=== PATIENT | female | born 1960 | race American Indian/Alaskan Native ===

== ENCOUNTER 2017-04-07 18:30 | Emergency (ER) | payer MEDICARE ==
[2017-04-07 20:10] LABS: Basophils # (Auto) 0.1 K/mm3 (0.0-0.1); Basophils % (Auto) 0.7 % (0.0-1.8); Eosinophils # (Auto) 0.2 K/mm3 (0.0-0.4); Hematocrit 38.8 % (30.3-42.9); Hemoglobin 12.7 gm/dl (10.1-14.3); Lymphocytes # (Auto) 2.4 K/mm3 (1.2-5.4); Lymphocytes % (Auto) 32.2 % (13.4-35.0); Mean Corpuscular HGB Conc 33 % (30-34); Mean Corpuscular Hemoglobin 29 pg (28-32); Mean Corpuscular Volume 87 fl (79-97); Monocytes # (Auto) 0.4 K/mm3 (0.0-0.8); Monocytes % (Auto) 5.4 % (0.0-7.3); Platelet Count 216 K/mm3 (140-440); Red Blood Count 4.45 M/mm3 (3.65-5.03); Red Cell Distribution Width 14.8 % (13.2-15.2)
[2017-04-07 20:33] LABS: BUN/Creatinine Ratio 13; Blood Urea Nitrogen 12 mg/dL (7-17); Calcium 9.5 mg/dL (8.4-10.2); Hemolysis Index 20
[2017-04-08 02:24] VITALS: BP 197/77
== END 2017-04-08 10:00 | disposition left against medical advice (07) ==
LOC: ED 18:30
DX: I10 Essential (primary) hypertension (principal); Z53.21 Procedure and treatment not carried out due to patient leaving prior to being seen by health care provider
CPT/HCPCS: 36415; 80048; 84484; 85025; 93005; 93010

== ENCOUNTER 2017-05-17 00:32 | Emergency (ER) | payer MEDICARE ==
[2017-05-17 00:53] VITALS: BP 168/86
[2017-05-17 01:29] LABS: Basophils # (Auto) 0.1 K/mm3 (0.0-0.1); Basophils % (Auto) 0.6 % (0.0-1.8); Eosinophils # (Auto) 0.1 K/mm3 (0.0-0.4); Eosinophils % (Auto) 1.6 % (0.0-4.3); Hematocrit 37.8 % (30.3-42.9); Hemoglobin 12.7 gm/dl (10.1-14.3); Lymphocytes # (Auto) 2.2 K/mm3 (1.2-5.4); Lymphocytes % (Auto) 27.7 % (13.4-35.0); Mean Corpuscular HGB Conc 33 % (30-34); Mean Corpuscular Hemoglobin 28 pg (28-32); Mean Corpuscular Volume 85 fl (79-97); Monocytes # (Auto) 0.4 K/mm3 (0.0-0.8); Monocytes % (Auto) 5.4 % (0.0-7.3); Platelet Count 226 K/mm3 (140-440); Red Blood Count 4.46 M/mm3 (3.65-5.03); Red Cell Distribution Width 14.1 % (13.2-15.2)
[2017-05-17 01:51] LABS: BUN/Creatinine Ratio 15; Blood Urea Nitrogen 15 mg/dL (7-17); Hemolysis Index 31
== END 2017-05-17 09:04 | disposition left against medical advice (07) ==
LOC: ED 00:32
DX: R42 Dizziness and giddiness (principal); Z53.21 Procedure and treatment not carried out due to patient leaving prior to being seen by health care provider
CPT/HCPCS: 36415; 80048; 82962; 85025; 93005; 93010

== ENCOUNTER 2017-05-28 00:26 | Emergency (ER) | payer MEDICARE ==
[2017-05-28 01:37] LABS: Basophils # (Auto) 0.1 K/mm3 (0.0-0.1); Basophils % (Auto) 0.9 % (0.0-1.8); Eosinophils # (Auto) 0.1 K/mm3 (0.0-0.4); Eosinophils % (Auto) 1.4 % (0.0-4.3); Hematocrit 37.1 % (30.3-42.9); Hemoglobin 12.1 gm/dl (10.1-14.3); Lymphocytes # (Auto) 2.4 K/mm3 (1.2-5.4); Lymphocytes % (Auto) 25.2 % (13.4-35.0); Mean Corpuscular HGB Conc 33 % (30-34); Mean Corpuscular Hemoglobin 28 pg (28-32); Mean Corpuscular Volume 87 fl (79-97); Monocytes # (Auto) 0.6 K/mm3 (0.0-0.8); Monocytes % (Auto) 6.7 % (0.0-7.3); Platelet Count 327 K/mm3 (140-440); Red Blood Count 4.29 M/mm3 (3.65-5.03); Red Cell Distribution Width 13.9 % (13.2-15.2)
[2017-05-28 01:48] LABS: INR 0.95 (0.87-1.13)
[2017-05-28 01:49] LABS: Partial Thromboplastin Time 33.1 Sec. (24.2-36.6); Thrombin Time 14.6 Sec. (15.1-19.6)
--- NOTE | 2017-05-28 02:05 | Cat Scan Report ---
FINAL REPORT EXAM: CT HEAD/BRAIN WO CON HISTORY: FACIAL TWITCHING EARLIER, DIFFUCILTY WALKING, CVA THIS MONTH TECHNIQUE: Routine axial imaging was obtained of the brain without IV contrast. Comparison is made to the study of 06/30/2010. FINDINGS: There is no evidence of acute stroke or hemorrhage. The ventricular system is appropriate in size and is symmetric. The basal cisterns appear normal. The visualized sinuses are clear. The mastoid air cells are well pneumatized. The calvarium appears intact. IMPRESSION: No acute intracranial process.
[2017-05-28 02:14] LABS: BUN/Creatinine Ratio 15; Blood Urea Nitrogen 18 mg/dL (7-17); Calcium 9.6 mg/dL (8.4-10.2); Hemolysis Index 5
[2017-05-28] MEDS ORDERED: TYLENOL PO ONE (05:43)
[2017-05-28 05:44] VITALS: BP 131/82
--- NOTE | 2017-05-28 05:51 | Emergency Department Report ---
HPI - General Chief Complaint: Neuro Symptoms/Deficit Time Seen by Provider: 05/28/17 04:30 - HPI HPI: 56-year-old female presents to the emergency department with 2 complaints. First, patient developed some palpitations in which she felt like her heart was fluttering. She denies any chest pain, shortness of breath. Secondly, the patient complains of some bilateral facial twitching. The patient just got out of [facility] 2 days ago after being there for a stroke. She says that she went into [facility] with slurred speech, left- sided facial droop and some weakness. She was discharged home on multiple medications including Plavix and follow-up with multiple different physicians. She has a past medical history is well above insulin-dependent diabetes, GERD, coronary artery disease with [place], hypertension, hyperlipidemia, degenerative disc disease. She has a primary care physician to [facility]. She denies having a public speaking professor. She denies tobacco or illicit drug use or abuse. The patient says that earlier today, when the face began twitching around 7 PM , that she felt like she had some worsening of her walking. She denies any vision change, headache, facial droop, numbness. She did not take anything for her symptoms prior to presentation. ED Past Medical Hx - Past Medical History Previous Medical History?: Yes Hx Hypertension: Yes Hx CVA: Yes (05/2017) Hx Heart Attack/AMI: Yes (08/2016) Hx Diabetes: Yes Hx GERD: Yes Hx Renal Disease: Yes Hx Arthritis: Yes Hx COPD: No Additional medical history: High cholesterol, degenarative disc disease, anxiety , HEART MURMUR - Surgical History Past Surgical History?: Yes Additional Surgical History: right rotator cuff, cardiac cath - Social History Smoking Status: Never Smoker Substance Use Type: None - Medications Home Medications: Home Medications Medication Instructions Recorded Confirmed Last Taken Type Cyclobenzaprine [Flexeril 10 MG 10 mg PO TID PRN #14 tablet 12/04/13 Unknown Rx TAB] HYDROcodone/APAP 5-325 [[place] 1 each PO Q6HR PRN #14 tablet 12/04/13 Unknown Rx 5-325 mg TAB] Clindamycin [Clindamycin CAP] 300 mg PO Q6H #20 capsule 10/19/14 Unknown Rx Acetaminophen/Codeine [Tylenol 1 tab PO Q6H PRN #20 tab 11/23/14 Unknown Rx /Codeine # 3 tab] Clindamycin [Clindamycin CAP] 300 mg PO Q6H #28 capsule 11/23/14 Unknown Rx Acetaminophen/Codeine [Tylenol #3] 1 tab PO Q6H PRN #15 tab 07/05/15 Unknown Rx Acetaminophen/Codeine [Tylenol 1 tab PO Q6H PRN #10 tab 08/17/16 Unknown Rx /Codeine # 3 tab] Acetaminophen/Codeine [Tylenol 1 tab PO Q6H PRN #20 tab 08/17/16 Unknown Rx /Codeine # 3 tab] Cyclobenzaprine HCl [Flexeril 5 MG 5 mg PO Q8HR PRN #15 tablet 08/17/16 Unknown Rx TAB] Fluticasone [Flonase] 1 spray NS QDAY #1 bottle 08/17/16 Unknown Rx Hydrochlorothiazide [HCTZ] 25 mg PO QDAY #30 tablet 08/17/16 Unknown Rx Lisinopril [Zestril TAB] 1 tab PO BID #60 tablet 08/17/16 Unknown Rx Metformin HCl [Glucophage] 1,000 mg PO BID #60 tablet 08/17/16 Unknown Rx Ranitidine HCl [Heartburn Relief] 150 mg PO DAILY #30 tablet 08/17/16 Unknown Rx Simvastatin [Zocor TAB] 20 mg PO QHS #30 tablet 08/17/16 Unknown Rx amLODIPine [Norvasc] 1 tab PO QDAY #30 tablet 08/17/16 Unknown Rx diphenhydrAMINE [Benadryl CAP] 25 mg PO Q6HR PRN #30 capsule 08/17/16 Unknown Rx levETIRAcetam [Keppra] 500 mg PO BID #60 tablet 05/28/17 Unknown Rx ED Review of Systems ROS: Stated complaint: PALPITATIONS Other details as noted in HPI Comment: All other systems reviewed and negative Constitutional: denies: chills, fever Eyes: denies: eye pain, eye discharge, vision change ENT: denies: ear pain, throat pain Respiratory: denies: cough, shortness of breath, wheezing Cardiovascular: palpitations. denies: chest pain Gastrointestinal: denies: abdominal pain, nausea, diarrhea Genitourinary: denies: urgency, dysuria, discharge Musculoskeletal: denies: joint swelling, arthralgia Skin: denies: rash, lesions Neurological: denies: headache, numbness, confusion Physical Exam - Physical Exam Vital Signs: Vital Signs 05/28/17 05/28/17 00:51 05:41 Temperature 98.1 F Pulse Rate 83 81 Respiratory 16 16 Rate Blood Pressure 141/75 Blood Pressure 131/82 [Left] O2 Sat by Pulse 100 98 Oximetry Physical Exam: GENERAL: The patient is well-developed well-nourished. HENT: Normocephalic. Atraumatic. Patient has moist mucous membranes. EYES: Extraocular motions are intact. Pupils equal reactive to light bilaterally. No nystagmus. NECK: Supple. Trachea is midline. CHEST/LUNGS: Clear to auscultation. There is no respiratory distress noted. HEART/CARDIOVASCULAR: Regular. There is no tachycardia. There is no murmur. ABDOMEN: Abdomen is soft, nontender. Patient has normal bowel sounds. There is no abdominal distention. SKIN: Skin is warm and dry. NEURO: The patient is awake, alert, and oriented. The patient is cooperative. The patient has no focal neurologic deficits. The patient has normal speech. Cranial nerves II through XII grossly intact. No pronator drift. No dysmetria. No facial asymmetry. MUSCULOSKELETAL: There is no tenderness or deformity. There is no limitation range of motion. There is no evidence of acute injury. Muscle strength 5 out of 5 upper and lower extremities bilaterally. ED Course Vital Signs 05/28/17 05/28/17 00:51 05:41 Temperature 98.1 F Pulse Rate 83 81 Respiratory 16 16 Rate Blood Pressure 141/75 Blood Pressure 131/82 [Left] O2 Sat by Pulse 100 98 Oximetry - Reevaluation(s) Reevaluation #1: 05/28/17 06:20 NIH Stroke Scale/Score (NIHSS) from [email or web address] on 05/28/2017 All calculations should be rechecked by clinician prior to use RESULT SUMMARY: 0 points NIH Stroke Scale INPUTS: 1A: Level of consciousness > 0 = Alert; keenly responsive 1B: Ask month and age > 0 = Both questions right 1C: 'Blink eyes' & 'squeeze hands' > 0 = Performs both tasks 2: Horizontal extraocular movements > 0 = Normal 3: Visual hui > 0 = No visual loss 4: Facial palsy > 0 = Normal symmetry 5A: Left arm motor drift > 0 = No drift for 10 seconds 5B: Right arm motor drift > 0 = No drift for 10 seconds 6A: Left leg motor drift > 0 = No drift for 5 seconds 6B: Right leg motor drift > 0 = No drift for 5 seconds 7: Limb Ataxia > 0 = No ataxia 8: Sensation > 0 = Normal; no sensory loss 9: Language/aphasia > 0 = Normal; no aphasia 10: Dysarthria > 0 = Normal 11: Extinction/inattention > 0 = No abnormality - Consultations Consultation #1: 05/28/17 06:18 I spoke with the telemedicine neurologist, Dr Lopez, regarding the patient's presentation with the bilateral facial twitching and her recent visit to a local [place] facility for a CVA. She agrees that the patient does not appear to require admission at this time as she just had a significant CVA workup. However, Dr Lopez suggests that the patient get started on Keppra 500 mg twice a day to evaluate the stroke as cortical versus subcortical and as a cause of the facial twitching and that the patient should follow-up with a neurologist for assessment of whether or not the patient stay on this medication. ED Medical Decision Making - Lab Data Result diagrams: 05/28/17 01:26 05/28/17 01:26 - EKG Data -: EKG Interpreted by Me EKG shows normal: sinus rhythm, axis (left axis deviation), intervals, QRS complexes (LVH, Q waves to the septal leads), ST-T waves (there is some ST elevation to the septal leads) Rate: normal - EKG Data When compared to previous EKG there are: no significant change Interpretation: unchanged when compared t (05/17/17) - Radiology Data Radiology results: report reviewed, image reviewed interpreted by me: Chest x-ray does not show any acute process. There are no pleural effusions, obvious pneumonia and there is no pneumothorax. EXAM: CT HEAD/BRAIN WO CON HISTORY: FACIAL TWITCHING EARLIER, DIFFUCILTY WALKING, CVA THIS MONTH TECHNIQUE: Routine axial imaging was obtained of the brain without IV contrast. Comparison is made to the study of 06/30/2010. FINDINGS: There is no evidence of acute stroke or hemorrhage. The ventricular system is appropriate in size and is symmetric. The basal cisterns appear normal. The visualized sinuses are clear. The mastoid air cells are well pneumatized. The calvarium appears intact. IMPRESSION: No acute intracranial process. Transcribed By: RB Dictated By: WESLEY GARCIAS MD Electronically Authenticated By: WESLEY GARCIAS MD Signed Date/Time: 05/28/17 0200 - Medical Decision Making The patient came in originally for the complaints of palpitations and some facial twitching. Her symptoms appear to have resolved by the time she has back in the main emergency department. However she had mentioned through triage that the facial twitching brought on some concern for transient slurred speech and/or some weakness. The patient had a CT scan of the head that did not show any bleed, shift, mass or any acute process. EKG did not show any ST elevation [place], or any significant dysrhythmia. Her labs have been unremarkable including no signs of any leukocytosis, electrolyte abnormalities, renal insufficiency, significant hyperglycemia and the patient had negative troponins 2. On physical examination, the patient is a NIH stroke scale of a 0. Chest x -ray did not show any acute process. Her vital signs have been stable throughout her ED course. The patient was just at another hospital for a full neurological workup and I believe also included an MRI. I spoke with the telemedicine neurologist who did not feel that the patient required any admission for the transient symptoms that occurred earlier but recommended starting the patient on some Keppra. The patient says that she feels like she is at her baseline from when she left the last hospital. She was seen ambulatory in the emergency department, using her cane, but otherwise appeared stable. The patient will be discharged home with a referral for both cardiology and neurology. She has been encouraged to return to the emergency department immediately with any return of any strokelike symptoms, development of any chest pain, return of her palpitations, with any shortness of breath, orthopnea acute distress. She understands and agrees to the plan. - Differential Diagnosis TIA, Dysrythmia, Hyperglycemia, Electrolyte abnormalities Critical Care Time: No Critical care attestation.: If time is entered above; I have spent that time in minutes in the direct care of this critically ill patient, excluding procedure time. ED Disposition Clinical Impression: Palpitations, Facial twitching Disposition: DC-01 TO HOME OR SELFCARE Is pt being admited?: No Condition: Stable Instructions: Palpitations (ED), Muscle Spasm (ED) Additional Instructions: Please follow-up with your primary care physician in the next few days. I have given him a referral for a local public speaking professor, Dr. Ny, to follow up regarding your palpitations. I have given her a referral for a local neurologist, Dr. Doherty, to follow up regarding your previous stroke. Return to the emergency department with any worsening of your symptoms or with any acute distress. Prescriptions: levETIRAcetam [Keppra] 500 mg PO BID #60 tablet Referrals: MANDEEP DOHERTY MD [Staff Physician] - 3-5 Days CHRISSY NY MD [Staff Physician] - 3-5 Days Time of Disposition: 06:16
--- NOTE | 2017-05-28 06:00 | XRay Report ---
FINAL REPORT EXAM: XR CHEST 1V AP HISTORY: palpitations TECHNIQUE: A portable upright view of the chest was submitted. FINDINGS: The heart size and mediastinum appear normal. The lungs are clear. Pleural fluid is not seen. The bones and soft tissues do not show any acute changes. IMPRESSION: No active chest disease.
== END 2017-05-28 06:30 | disposition home or self-care (01) ==
LOC: ED 00:26
DX: R25.3 Fasciculation (principal); R00.2 Palpitations; I10 Essential (primary) hypertension; E11.9 Type 2 diabetes mellitus without complications; K21.9 Gastro-esophageal reflux disease without esophagitis; M19.90 Unspecified osteoarthritis, unspecified site; E78.00 Pure hypercholesterolemia, unspecified; F41.9 Anxiety disorder, unspecified; I63.9 Cerebral infarction, unspecified; I21.9 Acute myocardial infarction, unspecified; Z88.6 Allergy status to analgesic agent
CPT/HCPCS: 36415; 70450; 71045; 80048; 82962; 83735; 84484; 85025; 85610; 85670; 85730; 93005; 93010; 99284

== ENCOUNTER 2017-06-02 17:55 | Emergency (ER) | payer MEDICARE ==
[2017-06-02 19:19] VITALS: BP 129/67
[2017-06-02 19:39] LABS: Basophils # (Auto) 0.1 K/mm3 (0.0-0.1); Basophils % (Auto) 0.9 % (0.0-1.8); Eosinophils # (Auto) 0.1 K/mm3 (0.0-0.4); Eosinophils % (Auto) 1.5 % (0.0-4.3); Hemoglobin 11.7 gm/dl (10.1-14.3); Lymphocytes # (Auto) 2.3 K/mm3 (1.2-5.4); Lymphocytes % (Auto) 29.5 % (13.4-35.0); Mean Corpuscular HGB Conc 33 % (30-34); Mean Corpuscular Hemoglobin 28 pg (28-32); Mean Corpuscular Volume 87 fl (79-97); Monocytes # (Auto) 0.5 K/mm3 (0.0-0.8); Monocytes % (Auto) 6.1 % (0.0-7.3); Platelet Count 340 K/mm3 (140-440); Red Blood Count 4.16 M/mm3 (3.65-5.03); Red Cell Distribution Width 14.1 % (13.2-15.2)
[2017-06-02 19:54] LABS: Albumin 4.1 g/dL (3.9-5); Calcium 9.4 mg/dL (8.4-10.2)
== END 2017-06-02 23:21 | disposition left against medical advice (07) ==
LOC: ED 17:55
DX: K59.00 Constipation, unspecified (principal); Z53.21 Procedure and treatment not carried out due to patient leaving prior to being seen by health care provider
CPT/HCPCS: 36415; 80053; 82962; 85025

== ENCOUNTER 2017-07-18 15:18 | Observation (INO) | payer MEDICARE ==
--- NOTE | 2017-07-18 17:50 | Emergency Department Report ---
Blank Doc - Documentation Documentation: Patient is a 56-year-old female who is presenting with chest pain. Patient has a past smoker history of [place] hypertension and diabetes high cholesterol. Patient states that last night she started getting sharp chest pain that sometimes lasts from seconds to minutes, sometimes last up to 5-10 minutes. Patient states she is currently not short of breath but they've had some shortness of breath during one of 2 of these episodes. Patient states they occur at rest. Patient is concerned that she may be having a heart attack. Patient denies any fevers chills nausea vomiting or cough at this time.
[2017-07-18 18:17] LABS: Basophils # (Auto) 0.1 K/mm3 (0.0-0.1); Basophils % (Auto) 0.8 % (0.0-1.8); Eosinophils # (Auto) 0.1 K/mm3 (0.0-0.4); Eosinophils % (Auto) 1.5 % (0.0-4.3); Hematocrit 31.7 % (30.3-42.9); Hemoglobin 10.5 gm/dl (10.1-14.3); Lymphocytes % (Auto) 22.2 % (13.4-35.0); Mean Corpuscular HGB Conc 33 % (30-34); Mean Corpuscular Hemoglobin 29 pg (28-32); Mean Corpuscular Volume 86 fl (79-97); Monocytes # (Auto) 0.4 K/mm3 (0.0-0.8); Monocytes % (Auto) 4.8 % (0.0-7.3); Platelet Count 296 K/mm3 (140-440); Red Blood Count 3.67 M/mm3 (3.65-5.03); Red Cell Distribution Width 14.7 % (13.2-15.2)
[2017-07-18 18:27] LABS: INR 0.95 (0.87-1.13)
[2017-07-18 18:28] LABS: Partial Thromboplastin Time 34.1 Sec. (24.2-36.6)
[2017-07-18 18:59] LABS: BUN/Creatinine Ratio 14; Blood Urea Nitrogen 18 mg/dL (7-17); Calcium 9.8 mg/dL (8.4-10.2); Hemolysis Index 3
--- NOTE | 2017-07-18 19:53 | XRay Report ---
FINAL REPORT EXAM: XR CHEST ROUTINE 2V HISTORY: Chest Pain TECHNIQUE: Two view chest PA and lateral PRIORS: Comparison is May 28, 2017 FINDINGS: Cardiac and mediastinal contours are unremarkable. No focal pulmonary infiltrate is identified. No pleural fluid collection seen. Pulmonary vasculature is unremarkable. IMPRESSION: Negative two-view chest
[2017-07-18] MEDS ORDERED: PLAVIX PO ONE (20:57)
--- NOTE | 2017-07-18 20:59 | Emergency Department Report ---
HPI - General Chief Complaint: Chest Pain Time Seen by Provider: 07/18/17 17:43 - HPI HPI: Room 6 The patient is a 56-year-old female presenting with a chief complaint of chest pain. The patient states she's had left-sided chest pain intermittently since last night. The patient states pain radiates to her right neck. Patient denies shortness of breath, nausea/vomiting or diaphoresis. The patient states her chest pain is currently 0/10. The patient has had a cardiac catheterization in August 2016 which revealed 30-40% nonobstructive coronary artery disease Location: Chest Duration: Intermittent since last night Quality: Sharp Severity: Currently 0/10 Modifying factors: [see above] Context: [see above] Mode of transportation: [not driving] ED Past Medical Hx - Past Medical History Hx Hypertension: Yes Hx CVA: Yes (05/2017) Hx Heart Attack/AMI: Yes (08/2016) Hx Diabetes: Yes Hx GERD: Yes Hx Renal Disease: Yes Hx Arthritis: Yes Additional medical history: High cholesterol, degenarative disc disease, anxiety , HEART MURMUR - Surgical History Additional Surgical History: right rotator cuff, cardiac cath - Family History Family history: no significant - Social History Smoking Status: Never Smoker Substance Use Type: None - Medications Home Medications: Home Medications Medication Instructions Recorded Confirmed Last Taken Type Cyclobenzaprine [Flexeril 10 MG 10 mg PO TID PRN #14 tablet 12/04/13 06/02/17 Unknown Rx TAB] Acetaminophen/Codeine [Tylenol 1 tab PO Q6H PRN #20 tab 11/23/14 06/02/17 Unknown Rx /Codeine # 3 tab] Cyclobenzaprine HCl [Flexeril 5 MG 5 mg PO Q8HR PRN #15 tablet 08/17/16 Unknown Rx TAB] Fluticasone [Flonase] 1 spray NS QDAY #1 bottle 08/17/16 06/02/17 Unknown Rx Lisinopril [Zestril TAB] 1 tab PO BID #60 tablet 08/17/16 06/02/17 Unknown Rx Ranitidine HCl [Heartburn Relief] 150 mg PO DAILY #30 tablet 08/17/16 06/02/17 Unknown Rx amLODIPine [Norvasc] 1 tab PO QDAY #30 tablet 08/17/16 06/02/17 Unknown Rx AtorvaSTATin [Lipitor] 40 mg PO QHS 06/02/17 06/02/17 Unknown History Clopidogrel [Plavix] 75 mg PO QDAY 06/02/17 06/02/17 Unknown History HYDROcodone/APAP 5-325 [[place] 5 mg PO DAILY 06/02/17 06/02/17 Unknown History 5-325 mg TAB] Hydrochlorothiazide [HCTZ] 12.5 mg PO QDAY 06/02/17 06/02/17 Unknown History glipiZIDE [Glipizide] 10 mg PO DAILY 06/02/17 06/02/17 Unknown History hydrALAZINE [Apresoline] 25 mg PO Q8HR 06/02/17 06/02/17 Unknown History ED Review of Systems ROS: Stated complaint: CHEST PAIN Other details as noted in HPI Constitutional: denies: diaphoresis Respiratory: denies: shortness of breath Cardiovascular: chest pain Gastrointestinal: denies: nausea, vomiting Physical Exam - Physical Exam Vital Signs: Vital Signs 07/18/17 07/18/17 07/18/17 15:37 19:15 20:30 Temperature 98.9 F 98.2 F Pulse Rate 82 61 68 Respiratory 16 15 13 Rate Blood Pressure 147/73 116/64 Blood Pressure 119/68 [Left] O2 Sat by Pulse 97 99 98 Oximetry Physical Exam: GENERAL: The patient is well-developed well-nourished female lying on stretcher not appearing to be in acute distress HEENT: Normocephalic. Atraumatic. Extraocular motions are intact. Patient has moist mucous membranes. NECK: Supple. Trachea midline CHEST/LUNGS: Clear to auscultation. There is no respiratory distress noted. HEART/CARDIOVASCULAR: Regular. There is no tachycardia. There is no gallop rub or murmur. ABDOMEN: Abdomen is soft, nontender. Patient has normal bowel sounds. There is no abdominal distention. SKIN: There is no rash. There is no diaphoresis. NEURO: The patient is awake, alert, and oriented. The patient is cooperative. The patient has normal speech MUSCULOSKELETAL: There is no evidence of acute injury. ED Course Vital Signs 07/18/17 07/18/17 07/18/17 15:37 19:15 20:30 Temperature 98.9 F 98.2 F Pulse Rate 82 61 68 Respiratory 16 15 13 Rate Blood Pressure 147/73 116/64 Blood Pressure 119/68 [Left] O2 Sat by Pulse 97 99 98 Oximetry ED Medical Decision Making - Lab Data Result diagrams: 07/18/17 18:02 07/18/17 18:02 Laboratory Tests 07/18/17 07/18/17 07/18/17 18:02 18:02 18:02 WBC 9.1 RBC 3.67 Hgb 10.5 Hct 31.7 MCV 86 MCH 29 MCHC 33 RDW 14.7 Plt Count 296 Lymph % (Auto) 22.2 [place] % (Auto) 4.8 Eos % (Auto) 1.5 Baso % (Auto) 0.8 Lymph # 2.0 [place] # 0.4 Eos # 0.1 Baso # 0.1 Seg Neutrophils % 70.7 H Seg Neutrophils # 6.4 PT 13.1 INR 0.95 APTT 34.1 Sodium 137 Potassium 4.7 Chloride 97.7 L Carbon Dioxide 25 Anion Gap 19 BUN 18 H Creatinine 1.3 H Estimated GFR 51 BUN/Creatinine Ratio 14 Glucose 127 H POC Glucose Calcium 9.8 Troponin T < 0.010 07/18/17 07/18/17 20:31 20:50 WBC RBC Hgb Hct MCV MCH MCHC RDW Plt Count Lymph % (Auto) [place] % (Auto) Eos % (Auto) Baso % (Auto) Lymph # [place] # Eos # Baso # Seg Neutrophils % Seg Neutrophils # PT INR APTT Sodium Potassium Chloride Carbon Dioxide Anion Gap BUN Creatinine Estimated GFR BUN/Creatinine Ratio Glucose POC Glucose 140 H Calcium Troponin T < 0.010 - EKG Data -: EKG Interpreted by Me EKG shows normal: sinus rhythm Rate: normal - EKG Data When compared to previous EKG there are: no significant change Interpretation: LVH - Radiology Data Radiology results: report reviewed (chest x-ray), image reviewed (chest x-ray) interpreted by me: Chest x-ray- no focal infiltrates, no pneumothorax - Differential Diagnosis ACS, GERD, pericarditis, angina Critical care attestation.: If time is entered above; I have spent that time in minutes in the direct care of this critically ill patient, excluding procedure time. ED Disposition Clinical Impression: Chest pain Disposition: DC-09 OP ADMIT IP TO THIS HOSP Is pt being admited?: Yes Does the pt Need Aspirin: No (allergic to NSAIDs. Will give Plavix) Condition: Fair Instructions: Chest Pain (ED) Referrals: PRIMARY CARE, [Primary Care Provider] - 3-5 Days Time of Disposition: 22:07 (hospitalist notified (Dr Dorman))
--- NOTE | 2017-07-18 23:40 | History and Physical Report ---
History of Present Illness Date of examination: 07/18/17 Date of admission: 07/18/17 22:08 Chief complaint: Chief complaint: Left-sided chest pain since last night-intermittent in nature History of present illness: NEIL: 56-year-old -Australian female with history of coronary artery disease hypertension and type 2 diabetes and hyperlipidemia comes in for left-sided chest pain since last night. Chest pain is intermittent in nature. Pain is about 5 on a scale of 1-10. Patient had cardiac cath last year in 2016 and had a 30-40% lesion and coronary artery disease. Did not require any stenting. Follows with [facility]. No diaphoresis no shortness of breath. No palpitations. Pain occasionally radiates to her right side of the neck. No recent travel. No fever no chills. Past Medical History Hx Hypertension: Yes Hx CVA: Yes (05/2017) Hx Heart Attack/AMI: Yes (08/2016) Hx Diabetes: Yes Hx GERD: Yes Hx Renal Disease: Yes Hx Arthritis: Yes Additional medical history: High cholesterol, degenarative disc disease, anxiety , HEART MURMUR Surgical History Additional Surgical History: right rotator cuff, cardiac cath Family History Family history: no significant Social History Smoking Status: Never Smoker Substance Use Type: None Medications Home Medications: Home Medications Medication Instructions Recorded Confirmed Last Taken Type Cyclobenzaprine [Flexeril 10 MG 10 mg PO TID PRN #14 tablet 12/04/13 06/02/17 Unknown Rx TAB] Acetaminophen/Codeine [Tylenol 1 tab PO Q6H PRN #20 tab 11/23/14 06/02/17 Unknown Rx /Codeine # 3 tab] Cyclobenzaprine HCl [Flexeril 5 MG 5 mg PO Q8HR PRN #15 tablet 08/17/16 Unknown Rx TAB] Fluticasone [Flonase] 1 spray NS QDAY #1 bottle 08/17/16 06/02/17 Unknown Rx Lisinopril [Zestril TAB] 1 tab PO BID #60 tablet 08/17/16 06/02/17 Unknown Rx Ranitidine HCl [Heartburn Relief] 150 mg PO DAILY #30 tablet 08/17/16 06/02/17 Unknown Rx amLODIPine [Norvasc] 1 tab PO QDAY #30 tablet 08/17/16 06/02/17 Unknown Rx AtorvaSTATin [Lipitor] 40 mg PO QHS 06/02/17 06/02/17 Unknown History Clopidogrel [Plavix] 75 mg PO QDAY 06/02/17 06/02/17 Unknown History HYDROcodone/APAP 5-325 [[place] 5 mg PO DAILY 06/02/17 06/02/17 Unknown History 5-325 mg TAB] Hydrochlorothiazide [HCTZ] 12.5 mg PO QDAY 06/02/17 06/02/17 Unknown History glipiZIDE [Glipizide] 10 mg PO DAILY 06/02/17 06/02/17 Unknown History hydrALAZINE [Apresoline] 25 mg PO Q8HR 06/02/17 06/02/17 Unknown History Medications and Allergies Allergies Allergy/AdvReac Type Severity Reaction Status Date / Time aspirin Allergy Unknown Verified 06/14/15 14:10 NSAIDS (Non-Steroidal Allergy Vomiting Verified 06/14/15 14:10 Anti-Inflamma shellfish derived Allergy Swelling Verified 06/14/15 14:10 Penicillins AdvReac Swelling Verified 06/14/15 14:10 Home Medications Medication Instructions Recorded Confirmed Last Taken Type Acetaminophen/Codeine [Tylenol 1 tab PO Q6H PRN #20 tab 11/23/14 07/18/17 Unknown Rx /Codeine # 3 tab] Fluticasone [Flonase] 1 spray NS QDAY #1 bottle 08/17/16 07/18/17 Unknown Rx Lisinopril [Zestril TAB] 1 tab PO BID #60 tablet 08/17/16 07/18/17 Unknown Rx Ranitidine HCl [Heartburn Relief] 150 mg PO DAILY #30 tablet 08/17/16 07/18/17 Unknown Rx amLODIPine [Norvasc] 1 tab PO QDAY #30 tablet 08/17/16 07/18/17 Unknown Rx AtorvaSTATin [Lipitor] 40 mg PO QHS 06/02/17 07/18/17 Unknown History Clopidogrel [Plavix] 75 mg PO QDAY 06/02/17 07/18/17 Unknown History HYDROcodone/APAP 5-325 [[place] 5 mg PO DAILY 06/02/17 07/18/17 Unknown History 5-325 mg TAB] Hydrochlorothiazide [HCTZ] 12.5 mg PO QDAY 06/02/17 07/18/17 Unknown History glipiZIDE [Glipizide] 10 mg PO DAILY 06/02/17 07/18/17 Unknown History hydrALAZINE [Apresoline] 25 mg PO Q8HR 06/02/17 07/18/17 Unknown History Aspirin [Aspir-Low] 81 mg PO DAILY 07/18/17 07/18/17 Unknown History Review of Systems All systems: negative Constitutional: no weight loss, no weight gain, no fever, no chills, no sweats, no night sweats Ears, nose, mouth and throat: no mouth pain, no dysphagia, no hoarseness, no sore throat, no swelling in mouth, no swelling in throat Breasts: deferred Cardiovascular: chest pain, no orthopnea, no palpitations, no rapid/irregular heart beat, no edema, no syncope, no lightheadedness, no shortness of breath, no dyspnea on exertion, no paroxysmal nocturnal dyspnea, no claudication, no phlebitis, no high blood pressure, no leg edema, no decreased exercise tolerance , no other Respiratory: no cough, no cough with sputum, no excessive sputum, no hemoptysis , no shortness of breath, no dyspnea on exertion Gastrointestinal: no abdominal pain, no nausea, no vomiting, no diarrhea, no constipation, no change in bowel habits, no hematemesis, no coffee ground emesis Genitourinary Female: no pelvic pain, no flank pain, no menorrhagia, no dysuria , no urinary frequency, no urgency, no stress incontinence, no post void dribbling, no incomplete emptying, no urge incontinence Menstruation: ammenorrhea Rectal: no pain Musculoskeletal: no neck stiffness, no neck pain, no shooting arm pain, no arm numbness/tingling, no low back pain, no shooting leg pain, no leg numbness/ tingling, no redness of joints Integumentary: no rash, no pruritis, no redness, no sores, no wounds, no jaundice, no boils, no blisters Neurological: no seizures, no syncope Psychiatric: no anxiety, no memory loss, no change in sleep habits, no sleep disturbances, no insomnia, no hypersomnia Endocrine: no cold intolerance, no heat intolerance, no polyphagia, no excessive thirst, no polydipsia Hematologic/Lymphatic: no easy bruising, no easy bleeding Allergic/Immunologic: no urticaria, no allergic rhinitis, no wheezing Exam - Constitutional Vitals: Temp Pulse Resp BP Pulse Ox 98.2 F 65 12 125/62 100 07/18/17 19:15 07/18/17 22:00 07/18/17 22:00 07/18/17 22:00 07/18/17 22:00 General appearance: Present: no acute distress, well-nourished - EENT Eyes: Present: PERRL ENT: hearing intact, clear oral mucosa - Neck Neck: Present: supple, normal ROM - Respiratory Respiratory effort: normal Respiratory: bilateral: CTA - Cardiovascular Heart rate: 68 Rhythm: regular Heart Sounds: Present: S1 & S2. Absent: rub, click - Extremities Extremities: pulses symmetrical, No edema Peripheral Pulses: within normal limits - Abdominal General gastrointestinal: Present: soft, non-tender, non-distended, normal bowel sounds Female genitourinary: Present: normal - Rectal Rectal Exam: deferred - Integumentary Integumentary: Present: clear, warm, dry - Musculoskeletal Musculoskeletal: gait normal, strength equal bilaterally - Psychiatric Psychiatric: appropriate mood/affect, intact judgment & insight - Neurologic Neurologic: CNII-XII intact, moves all extremities - Allied Health Allied health notes reviewed: nursing, case management Results - Labs CBC & Chem 7: 07/18/17 18:02 07/18/17 18:02 Labs: Laboratory Last Values WBC 9.1 K/mm3 (4.5-11.0) 07/18/17 18: RBC 3.67 M/mm3 (3.65-5.03) 07/18/17 18: Hgb 10.5 gm/dl (10.1-14.3) 07/18/17 18: Hct 31.7 % (30.3-42.9) 07/18/17 18:02 MCV 86 fl (79-97) 07/18/17 18:02 MCH 29 pg (28-32) 07/18/17 18: MCHC 33 % (30-34) 07/18/17 18: RDW 14.7 % (13.2-15.2) 07/18/17 18: Plt Count 296 K/mm3 (140-440) 07/18/17 18: Lymph % (Auto) 22.2 % (13.4-35.0) 07/18/17 18:02 [place] % (Auto) 4.8 % (0.0-7.3) 07/18/17 18:02 Eos % (Auto) 1.5 % (0.0-4.3) 07/18/17 18:02 Baso % (Auto) 0.8 % (0.0-1.8) 07/18/17 18:02 Lymph # 2.0 K/mm3 (1.2-5.4) 07/18/17 18:02 [place] # 0.4 K/mm3 (0.0-0.8) 07/18/17 18:02 Eos # 0.1 K/mm3 (0.0-0.4) 07/18/17 18:02 Baso # 0.1 K/mm3 (0.0-0.1) 07/18/17 18:02 Seg Neutrophils % 70.7 % (40.0-70.0) H 07/18/17 18:02 Seg Neutrophils # 6.4 K/mm3 (1.8-7.7) 07/18/17 18:02 PT 13.1 Sec. (12.2-14.9) 07/18/17 18:02 INR 0.95 (0.87-1.13) 07/18/17 18:02 APTT 34.1 Sec. (24.2-36.6) 07/18/17 18:02 Sodium 137 mmol/L (137-145) 07/18/17 18:02 Potassium 4.7 mmol/L (3.6-5.0) 07/18/17 18:02 Chloride 97.7 mmol/L (98-107) L 07/18/17 18:02 Carbon Dioxide 25 mmol/L (22-30) 07/18/17 18:02 Anion Gap 19 mmol/L 07/18/17 18:02 BUN 18 mg/dL (7-17) H 07/18/17 18:02 Creatinine 1.3 mg/dL (0.7-1.2) H 07/18/17 18:02 Estimated GFR 51 ml/min 07/18/17 18:02 BUN/Creatinine Ratio 14 % 07/18/17 18:02 Glucose 127 mg/dL (65-100) H 07/18/17 18:02 POC Glucose 140 (70-105) H 07/18/17 20:31 Calcium 9.8 mg/dL (8.4-10.2) 07/18/17 18:02 Troponin T < 0.010 ng/mL (0.00-0.029) 07/18/17 20:50 Short CBC 07/18/17 Range/Units 18:02 WBC 9.1 (4.5-11.0) K/mm3 Hgb 10.5 (10.1-14.3) gm/dl Hct 31.7 (30.3-42.9) % Plt Count 296 (140-440) K/mm3 BMP 07/18/17 18:02 Sodium 137 Potassium 4.7 Chloride 97.7 L Carbon Dioxide 25 BUN 18 H Creatinine 1.3 H Glucose 127 H Calcium 9.8 Cardiac Enzymes 07/18/17 07/18/17 Range/Units 18:02 20:50 Troponin T < 0.010 < 0.010 (0.00-0.029) ng/mL - Imaging and Cardiology EKG: report reviewed (normal sinus rhythm heart rate of 68 and LVH by voltage criteria deep S waves in V1 and V2 and tall R waves in V4 V5 and V6) Assessment and Plan Advance Directives: Yes (full code) VTE prophylaxis?: Chemical Plan of care discussed with patient/family: Yes - Patient Problems (1) Acute coronary syndrome Current Visit: Yes Status: Acute Plan to address problem: Patient had a CABG in August 2016 which is apparently near normal. Patient to get stress test in the morning. Serial cardiac enzymes Cardiology consult by [facility] (2) RON (acute kidney injury) Current Visit: Yes Status: Acute Plan to address problem: IV fluids for now (3) Hypertensive emergency Current Visit: No Status: Acute Plan to address problem: Adjust blood pressure medications and IV hydralazine 10 mg every 3 when necessary for systolic more than 160 and diastolic 100 mm Hg (4) T2DM (type 2 diabetes mellitus) Current Visit: Yes Status: Chronic Qualifiers: Diabetes mellitus extermination supervisor insulin use: without halfway use Plan to address problem: Continue oral hypoglycemics and coverage Check hemoglobin A1c (5) Coronary artery disease Current Visit: Yes Status: Chronic Qualifiers: Coronary Disease-Associated Artery/Lesion type: [place] artery [place] vs. transplanted heart: [place]q heart Plan to address problem: Continue Plavix (6) Hyperlipidemia Current Visit: Yes Status: Chronic Qualifiers: Hyperlipidemia type: mixed hyperlipidemia Qualified Code(s): E78.2 - Mixed hyperlipidemia Plan to address problem: Continue statins (7) DVT prophylaxis Current Visit: Yes Status: Acute Plan to address problem: on heparin 5000 every 12
[2017-07-19] MEDS ORDERED: TYLENOL PO PRN (00:08)
[2017-07-19] MEDS ORDERED: SODIUM CHLORIDE FLUSH SYRINGE 10 ML IV PRN (00:08)
[2017-07-19] MEDS ORDERED: ZOFRAN IV PRN (00:08)
[2017-07-19] MEDS ORDERED: AMBIEN PO PRN (00:09)
[2017-07-19] MEDS ORDERED: MORPHINE IV PRN (00:09)
[2017-07-19] MEDS ORDERED: D50W (25GM) Syringe IV PRN (00:09)
[2017-07-19] MEDS ORDERED: PERCOCET 5/325 PO PRN (00:09)
[2017-07-19] MEDS ORDERED: TYLENOL #3 PO PRN (00:12)
[2017-07-19] MEDS ORDERED: NACL 0.9% 1000 ML 1,000 ML IV SCH (01:00)
[2017-07-19 01:13] LABS: Albumin 3.9 g/dL (3.9-5); Calcium 9.3 mg/dL (8.4-10.2)
[2017-07-19] MEDS: APRESOLINE PO SCH ×2 (01:20→06:33)
[2017-07-19] MEDS: ZESTRIL PO SCH ×2 (01:20→10:42)
[2017-07-19] MEDS ORDERED: GLUCOTROL PO SCH (08:00)
[2017-07-19] MEDS ORDERED: LEXISCAN IV ONE (08:09)
[2017-07-19] MEDS: HumaLOG SUB-Q SCH ×2 (08:36→13:06)
[2017-07-19] MEDS ORDERED: NORCO 5/325 PO SCH (10:00)
[2017-07-19] MEDS ORDERED: FLONASE NS SCH (10:00)
[2017-07-19] MEDS ORDERED: NORVASC PO SCH (10:00)
[2017-07-19] MEDS ORDERED: HALFPRIN EC PO SCH (10:00)
[2017-07-19] MEDS ORDERED: SODIUM CHLORIDE FLUSH SYRINGE 10 ML IV SCH (10:00)
[2017-07-19] MEDS ORDERED: PLAVIX PO SCH (10:00)
[2017-07-19] MEDS ORDERED: PEPCID PO SCH (10:00)
--- NOTE | 2017-07-19 10:49 | Event Note ---
Date: 07/19/17 Full c/s dictated. D/w Dr. Sewell
[2017-07-19 12:14] VITALS: BP 124/60
--- NOTE | 2017-07-19 13:27 | Discharge Summary ---
Providers - Providers Date of Admission: 07/18/17 22:08 Date of discharge: 07/19/17 Attending physician: DONG JONES 07/19/17 00:09 Consult to Physician [CONS] Routine Comment: Consulting Provider: CLIFF BLANCAS Physician Instructions: Reason For Exam: ACS Primary care physician: SAMPLE HAND Hospitalization Condition: Fair Hospital course: Discharge diagnosis: /Atypical chest pain likely from GERD Patient had a CABG in August 2016 which is apparently near normal. Patient had stress test in the morning and that was normal /CKD, at baseline Cr was 1.4 on 06/2017 /Hypertensive emergency Adjusted blood pressure medications and IV hydralazine 10 mg every 3 when necessary given for systolic more than 160 and diastolic 100 mm Hg / T2DM (type 2 diabetes mellitus) Placed on oral hypoglycemics and coverage A1c 8.0 / Coronary artery disease Continue Plavix /Hyperlipidemia Continue statins /DVT prophylaxis on heparin 5000 every 12 Disposition: IA-01 TO HOME OR SELFCARE Time spent for discharge: 34 minutes Core Measure Documentation - Palliative Care Palliative Care/ Comfort Measures: Not Applicable - Core Measures Any of the following diagnoses?: none Exam - Constitutional Vitals: Temp Pulse Resp BP Pulse Ox 97.9 F 91 H 18 124/60 96 07/19/17 11:40 07/19/17 09:21 07/19/17 11:40 07/19/17 11:40 07/19/17 03:18 Plan Activity: advance as tolerated Weight Bearing Status: Weight Bear as Tolerated Diet: low fat, low salt Follow up with: [facility] [Provider Group] - 7 Days PRIMARY CARE, [Primary Care Provider] - 3-5 Days
--- NOTE | 2017-07-20 03:09 | Treadmill Report ---
NUCLEAR PERFUSION SCAN REFERRING PHYSICIAN: Hospitalist service. PROTOCOL: The patient was brought to the stress lab in a postoperative state, given 10 mCi of technetium 99m at rest. The patient underwent rest imaging. The patient underwent Lexiscan stress test per standard protocol. At peak stress, the patient was given 26 mCi of technetium 99m. Shortly thereafter, the patient underwent stress imaging. Raw imaging reveals mild GI artifact. No significant motion artifact. SPECT imaging examined carefully in horizontal long axis, vertical long axis and short axis views. There was normal homogenous uptake of radioisotope in all reported segments. No evidence of any significant fixed or reversible perfusion defects suggestive of prior infarction or ischemia. Gated wall motion is normal systolic thickening, calculated ejection fraction of 69%. No TID. CONCLUSIONS: 1. Normal myocardial perfusion scan without evidence of active ischemia or prior infarction. 2. Normal left ventricular systolic performance without evidence of transient ischemic dilatation or stress-induced segmental wall motion abnormalities. 3. Normal Lexiscan stress test without evidence of diagnostic ST changes, arrhythmias or chest pain during stress or recovery. JOB# [id number] LA NENA/SERAFIN
--- NOTE | 2017-07-20 03:23 | Consultation ---
CARDIOLOGY CONSULTATION REFERRING PHYSICIAN: ____. HISTORY OF PRESENT ILLNESS: The patient is a very pleasant 56-year-old female with a history of mild nonobstructive coronary artery disease, type 2 diabetes and hyperlipidemia, presents with left-sided chest pain. Describes as intermittent, sharp, nonexertional, no associated shortness of breath or palpitations. Questionable history of CVA in 05/2017. She does have a history of hypertension and diabetes. Also, degenerative disk disease and anxiety. Surgeries were reviewed. ALLERGIES: ALLERGIC TO ASPIRIN, NSAID, SHELLFISH AND PENICILLIN. HOME MEDICATIONS: Reviewed. Inpatient medications are reviewed. REVIEW OF SYSTEMS: As per HPI. PHYSICAL EXAMINATION: VITAL SIGNS: Blood pressure 140/60. She is afebrile. Tele reveals sinus rhythm. O2 sats 90% on room air. GENERAL: This is a middle-aged female in no apparent distress, alert and oriented x 3. HEENT: Sclerae icteric. NECK: Supple, no masses, no JVD. CHEST: Clear to auscultation bilaterally. Good air movement. CARDIOVASCULAR: Regular rate and rhythm. ABDOMEN: Soft and nontender. EXTREMITIES: No cyanosis, clubbing or edema. Good peripheral pulses. SKIN: Intact. No rashes. LABORATORY DATA: Cardiac enzymes are negative x 3. Creatinine is 1.3, BUN 18 and glucose 124. IMAGING DATA: At this point, ECG reveals normal sinus rhythm, heart rate of 68. LVH with S waves in V1 and V2. ASSESSMENT AND PLAN: In summary, the patient is a pleasant 56-year-old female: 1. Chest pain with typical and atypical features, now resolved. Cardiac enzymes negative x3. EKG nuclear stress test performed this morning is normal. No evidence of ischemia or prior infarction. She has been compliant with her medications. Other medical history as aforementioned. She is clinically stable. Results discussed with Dr. Rice, hospitalist service. JOB# [id number] SBM/NTS
== END 2017-07-19 16:32 | disposition home or self-care (01) ==
LOC: ED 15:18 → INTOOBSV 22:08 → 4A 22:08
PROVIDERS: ADMIT Internal Medicine; ATTEND Internal Medicine
DX: I24.9 Acute ischemic heart disease, unspecified (principal); N17.9 Acute kidney failure, unspecified; I16.1 Hypertensive emergency; K21.9 Gastro-esophageal reflux disease without esophagitis; E11.22 Type 2 diabetes mellitus with diabetic chronic kidney disease; I25.10 Atherosclerotic heart disease of native coronary artery without angina pectoris; E78.5 Hyperlipidemia, unspecified; I12.9 Hypertensive chronic kidney disease with stage 1 through stage 4 chronic kidney disease, or unspecified chronic kidney disease; N18.9 Chronic kidney disease, unspecified; M19.90 Unspecified osteoarthritis, unspecified site; F41.9 Anxiety disorder, unspecified; Z95.1 Presence of aortocoronary bypass graft; I25.2 Old myocardial infarction; Z86.73 Personal history of transient ischemic attack (TIA), and cerebral infarction without residual deficits; Z79.899 Other long term (current) drug therapy; Z88.6 Allergy status to analgesic agent; Z88.0 Allergy status to penicillin; Z91.013 Allergy to seafood; Z79.82 Long term (current) use of aspirin
CPT/HCPCS: 36415; 71046; 78452; 80048; 80053; 82962; 83036; 84484; 85025; 85610; 85730; 93005; 93010; 93017; 96360; 96361; 96372; 99285; A9502; G0378; J2785; J7030; 96374

== ENCOUNTER 2018-09-05 02:41 | Emergency (ER) | payer MEDICARE ==
[2018-09-05 03:14] LABS: Basophils % (Auto) 0.4 % (0.0-1.8); Eosinophils # (Auto) 0.1 K/mm3 (0.0-0.4); Eosinophils % (Auto) 1.3 % (0.0-4.3); Hematocrit 34.9 % (30.3-42.9); Hemoglobin 11.5 gm/dl (10.1-14.3); Lymphocytes # (Auto) 2.3 K/mm3 (1.2-5.4); Lymphocytes % (Auto) 33.1 % (13.4-35.0); Mean Corpuscular HGB Conc 33 % (30-34); Mean Corpuscular Volume 87 fl (79-97); Monocytes # (Auto) 0.5 K/mm3 (0.0-0.8); Monocytes % (Auto) 6.6 % (0.0-7.3); Platelet Count 228 K/mm3 (140-440); Red Blood Count 4.03 M/mm3 (3.65-5.03); Red Cell Distribution Width 14.3 % (13.2-15.2)
[2018-09-05 03:37] LABS: Albumin 4.3 g/dL (3.9-5); Calcium 9.8 mg/dL (8.4-10.2)
[2018-09-05 03:42] VITALS: BP 128/61
[2018-09-05] MEDS ORDERED: ZOFRAN ODT PO ONE (03:49)
[2018-09-05] MEDS ORDERED: ANTIVERT PO ONE (03:49)
[2018-09-05] MEDS ORDERED: NACL 0.9% 1000 ML 1,000 ML IV ONE (03:49)
--- NOTE | 2018-09-05 05:20 | Emergency Department Report ---
ED Dizziness HPI - General Chief Complaint: Dizziness Stated Complaint: DIZZY/VOMITING Time Seen by Provider: 09/05/18 03:42 Source: patient Mode of arrival: Ambulatory Limitations: No Limitations - History of Present Illness Initial Comments: Patient is a 57-year-old [place] female who is presenting with some dizziness. Patient states last 2 days she's had some dizziness is worse when she is lying down. She also has mild headache and some sinus burning. Patient states that the dizziness is a spinning sensation. She is has some mild nausea. Patient denies any fevers chills sore throat cough, congestion or neck stiffness. Patient states there is been no ataxia or weakness in arms or legs. - Related Data Home Medications Medication Instructions Recorded Confirmed Last Taken AtorvaSTATin [Lipitor] 40 mg PO QHS 06/02/17 07/18/17 Unknown Clopidogrel [Plavix] 75 mg PO QDAY 06/02/17 07/18/17 Unknown HYDROcodone/APAP 5-325 [[place] 5 mg PO DAILY 06/02/17 07/18/17 Unknown 5-325 mg TAB] glipiZIDE [Glipizide] 10 mg PO DAILY 06/02/17 07/18/17 Unknown hydrALAZINE [Apresoline TAB] 25 mg PO Q8HR 06/02/17 07/18/17 Unknown hydroCHLOROthiazide [HCTZ] 12.5 mg PO QDAY 06/02/17 07/18/17 Unknown Aspirin [Aspir-Low] 81 mg PO DAILY 07/18/17 07/18/17 Unknown Previous Rx's Medication Instructions Recorded Last Taken Type Acetaminophen/Codeine [Tylenol 1 tab PO Q6H PRN #20 tab 11/23/14 Unknown Rx /Codeine # 3 tab] Fluticasone [Flonase] 1 spray NS QDAY #1 bottle 08/17/16 Unknown Rx Lisinopril [Zestril TAB] 1 tab PO BID #60 tablet 08/17/16 Unknown Rx Ranitidine HCl [Heartburn Relief] 150 mg PO DAILY #30 tablet 08/17/16 Unknown Rx amLODIPine [Norvasc] 1 tab PO QDAY #30 tablet 08/17/16 Unknown Rx Meclizine [Antivert] 25 mg PO TID PRN #10 tablet 09/05/18 Unknown Rx Ondansetron [Zofran Odt] 4 mg PO Q8HR #10 tab.rapdis 09/05/18 Unknown Rx Allergies Allergy/AdvReac Type Severity Reaction Status Date / Time aspirin Allergy Unknown Verified 06/14/15 14:10 NSAIDS (Non-Steroidal Allergy Vomiting Verified 06/14/15 14:10 Anti-Inflamma shellfish derived Allergy Swelling Verified 06/14/15 14:10 Penicillins AdvReac Swelling Verified 06/14/15 14:10 ED Review of Systems ROS: Stated complaint: DIZZY/VOMITING Other details as noted in HPI Comment: All other systems reviewed and negative ED Past Medical Hx - Past Medical History Previous Medical History?: Yes Hx Hypertension: Yes Hx CVA: Yes (05/2017) Hx Heart Attack/AMI: Yes Hx Congestive Heart Failure: No Hx Diabetes: Yes Hx Deep Vein Thrombosis: No Hx Pulmonary Embolism: No Hx GERD: Yes Hx Liver Disease: No Hx Renal Disease: Yes Hx Arthritis: Yes Hx Seizures: No Hx Kidney Stones: No Hx Asthma: No Hx COPD: Yes Hx Tuberculosis: No Hx Dementia: No Additional medical history: High cholesterol, degenarative disc disease, anxiety, HEART MURMUR - Surgical History Past Surgical History?: Yes Hx Coronary Stent: No Hx Internal Defibrillator: No Additional Surgical History: right rotator cuff, cardiac cath - Social History Smoking Status: Never Smoker Substance Use Type: None - Medications Home Medications: Home Medications Medication Instructions Recorded Confirmed Last Taken Type Acetaminophen/Codeine [Tylenol 1 tab PO Q6H PRN #20 tab 11/23/14 07/18/17 Unknown Rx /Codeine # 3 tab] Fluticasone [Flonase] 1 spray NS QDAY #1 bottle 08/17/16 07/18/17 Unknown Rx Lisinopril [Zestril TAB] 1 tab PO BID #60 tablet 08/17/16 07/18/17 Unknown Rx Ranitidine HCl [Heartburn Relief] 150 mg PO DAILY #30 tablet 08/17/16 07/18/17 Unknown Rx amLODIPine [Norvasc] 1 tab PO QDAY #30 tablet 08/17/16 07/18/17 Unknown Rx AtorvaSTATin [Lipitor] 40 mg PO QHS 06/02/17 07/18/17 Unknown History Clopidogrel [Plavix] 75 mg PO QDAY 06/02/17 07/18/17 Unknown History HYDROcodone/APAP 5-325 [[place] 5 mg PO DAILY 06/02/17 07/18/17 Unknown History 5-325 mg TAB] glipiZIDE [Glipizide] 10 mg PO DAILY 06/02/17 07/18/17 Unknown History hydrALAZINE [Apresoline TAB] 25 mg PO Q8HR 06/02/17 07/18/17 Unknown History hydroCHLOROthiazide [HCTZ] 12.5 mg PO QDAY 06/02/17 07/18/17 Unknown History Aspirin [Aspir-Low] 81 mg PO DAILY 07/18/17 07/18/17 Unknown History Meclizine [Antivert] 25 mg PO TID PRN #10 tablet 09/05/18 Unknown Rx Ondansetron [Zofran Odt] 4 mg PO Q8HR #10 tab.rapdis 09/05/18 Unknown Rx ED Physical Exam - General Limitations: No Limitations General appearance: alert, in no apparent distress - Head Head exam: Present: atraumatic, normocephalic - Eye Eye exam: Present: normal appearance, PERRL, EOMI - ENT ENT exam: Present: mucous membranes moist - Neck Neck exam: Present: normal inspection - Respiratory Respiratory exam: Present: normal lung sounds bilaterally. Absent: respiratory distress, wheezes, rales, rhonchi - Cardiovascular Cardiovascular Exam: Present: regular rate, normal rhythm. Absent: systolic murmur, diastolic murmur, rubs, gallop - GI/Abdominal GI/Abdominal exam: Present: soft, normal bowel sounds. Absent: distended, tenderness, guarding, rebound - Extremities Exam Extremities exam: Present: normal inspection - Back Exam Back exam: Present: normal inspection - Neurological Exam Neurological exam: Present: alert, oriented X3 - Psychiatric Psychiatric exam: Present: normal affect, normal mood - Skin Skin exam: Present: warm, dry, intact, normal color. Absent: rash ED Course Vital Signs 09/05/18 09/05/18 09/05/18 02:48 03:39 04:00 Temperature 98.2 F 98 F Pulse Rate 71 60 Respiratory 20 18 Rate Blood Pressure 141/68 129/60 Blood Pressure 128/61 [Left] O2 Sat by Pulse 97 99 98 Oximetry 09/05/18 04:31 Temperature Pulse Rate Respiratory Rate Blood Pressure 128/61 Blood Pressure [Left] O2 Sat by Pulse 99 Oximetry ED Medical Decision Making - Lab Data Result diagrams: 09/05/18 03:06 09/05/18 03:06 - Medical Decision Making Patient is presenting with some dizziness that is very vertigo-like in its description. Patient does have some evidence of possible dehydration as her blood sugar is 260 and her creatinine is slightly elevated as well. Patient will be hydrated. Patient was given Antivert which did help with her symptoms. Patient be discharged home. Critical care attestation.: If time is entered above; I have spent that time in minutes in the direct care of this critically ill patient, excluding procedure time. ED Disposition Clinical Impression: Dehydration, Hyperglycemia BPV (benign positional vertigo) Qualifiers: Laterality: unspecified laterality Qualified Code(s): H81.10 - Benign paroxysmal vertigo, unspecified ear Disposition: - TO HOME OR SELFCARE Is pt being admited?: No Does the pt Need Aspirin: No Condition: Stable Instructions: Vertigo (ED) Referrals: YOHAN RILEY MD [Primary Care Provider] - 3-5 Days Time of Disposition: 05:18
== END 2018-09-05 07:06 | disposition home or self-care (01) ==
LOC: ED 02:41
DX: E11.65 Type 2 diabetes mellitus with hyperglycemia (principal); E86.0 Dehydration; H81.10 Benign paroxysmal vertigo, unspecified ear; I10 Essential (primary) hypertension; I25.2 Old myocardial infarction; K21.0 Gastro-esophageal reflux disease with esophagitis; M19.90 Unspecified osteoarthritis, unspecified site; J44.9 Chronic obstructive pulmonary disease, unspecified; E78.00 Pure hypercholesterolemia, unspecified; F41.9 Anxiety disorder, unspecified; Z86.73 Personal history of transient ischemic attack (TIA), and cerebral infarction without residual deficits; Z79.899 Other long term (current) drug therapy; Z79.82 Long term (current) use of aspirin; Z88.8 Allergy status to other drugs, medicaments and biological substances; Z88.6 Allergy status to analgesic agent; Z88.0 Allergy status to penicillin; Z91.013 Allergy to seafood
CPT/HCPCS: 36415; 80053; 85025; 93005; 93010; 96360; 96361; 99283; J7030; Q0162

== ENCOUNTER 2019-01-19 23:58 | Emergency (ER) | payer MEDICARE | END 2019-01-20 01:23 | disposition left against medical advice (07) | LOC: ED 23:58 | DX: R51 Headache (principal); Z53.21 Procedure and treatment not carried out due to patient leaving prior to being seen by health care provider ==

== ENCOUNTER 2019-04-11 22:00 | Emergency (ER) | payer MEDICARE | END 2019-04-11 22:45 | disposition left against medical advice (07) | LOC: ED 22:00 | DX: R05 Cough (principal); Z53.21 Procedure and treatment not carried out due to patient leaving prior to being seen by health care provider ==

== ENCOUNTER 2020-03-03 11:13 | Emergency (ER) | payer OTHER, MEDICARE ==
[2020-03-03 11:18] VITALS: BP 140/68
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
[2020-03-03] MEDS ORDERED: traMADol 50 MG TAB PO ONE (11:29)
--- NOTE | 2020-03-03 12:10 | XRay Report ---
CERVICAL SPINE 4 VIEWS INDICATION / CLINICAL INFORMATION: MAIN. COMPARISON: 07/29/2007 FINDINGS: VERTEBRAE: No acute fracture. Straightening of the normal cervical lordosis. DISC SPACES / FACET JOINTS:Moderate-severe narrowing of the C5-6 and C6-7 intervertebral disc spaces with anterior osteophytosis. Diffuse facet degenerative arthrosis is present. Findings are progressed when compared to 07/29/2007. PARASPINAL SOFT TISSUES:No significant abnormality. ADDITIONAL FINDINGS: None. Signer Name: Isaiah Bowers MD Signed: 03/03/2020 12:06 PM Workstation Name: [id number]
[2020-03-03] MEDS ORDERED: ACETAMINOPHEN 325 MG TAB PO ONE (13:25)
== END 2020-03-03 13:36 | disposition home or self-care (01) ==
LOC: ED 11:13
DX: S16.1XXA Strain of muscle, fascia and tendon at neck level, initial encounter (principal); I10 Essential (primary) hypertension; I25.2 Old myocardial infarction; E11.9 Type 2 diabetes mellitus without complications; M19.91 Primary osteoarthritis, unspecified site; J44.9 Chronic obstructive pulmonary disease, unspecified; Z98.890 Other specified postprocedural states; Z79.899 Other long term (current) drug therapy; Z88.8 Allergy status to other drugs, medicaments and biological substances; V49.49XA Driver injured in collision with other motor vehicles in traffic accident, initial encounter; W22.10XA Striking against or struck by unspecified automobile airbag, initial encounter; Y93.89 Activity, other specified; Y92.410 Unspecified street and highway as the place of occurrence of the external cause; Y99.8 Other external cause status
CPT/HCPCS: 72040

== ENCOUNTER 2020-04-08 23:45 | Emergency (ER) | payer MEDICARE ==
[2020-04-08 23:59] VITALS: BP 142/73
[2020-04-09] MEDS ORDERED: ACETAMINOPHEN 325 MG TAB PO ONE (00:01)
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
--- NOTE | 2020-04-09 01:23 | Cat Scan Report ---
CT HEAD WITHOUT CONTRAST INDICATION / CLINICAL INFORMATION: headache. TECHNIQUE: All CT scans at this location are performed using CT dose reduction for ALARA by means of automated exposure control. COMPARISON: CT dated 05/28/17 FINDINGS: HEMORRHAGE: None. EXTRA-AXIAL SPACES: Normal in size and morphology for the patient's age. VENTRICULAR SYSTEM: Normal in size and morphology for the patient's age. CEREBRAL PARENCHYMA: No significant abnormality. No acute territorial infarct. MIDLINE SHIFT / HERNIATION: None. CEREBELLUM / BRAINSTEM: No significant abnormality. ORBITS: Normal as visualized. SOFT TISSUES: No significant abnormality. SKULL: No significant abnormality. PARANASAL SINUSES / MASTOID AIR CELLS: Normal as visualized. ADDITIONAL FINDINGS: None. IMPRESSION: 1. No acute intracranial abnormality. No change. Signer Name: Chan Leigh MD Signed: 04/09/2020 1:18 AM Workstation Name: [id number]
== END 2020-04-09 03:13 | disposition home or self-care (01) ==
LOC: ED 23:45
DX: R51.9 Headache, unspecified (principal); I25.2 Old myocardial infarction; I10 Essential (primary) hypertension; E11.9 Type 2 diabetes mellitus without complications; M19.91 Primary osteoarthritis, unspecified site; J44.9 Chronic obstructive pulmonary disease, unspecified; Z86.73 Personal history of transient ischemic attack (TIA), and cerebral infarction without residual deficits; Z98.890 Other specified postprocedural states; Z79.899 Other long term (current) drug therapy; Z88.8 Allergy status to other drugs, medicaments and biological substances
CPT/HCPCS: 70450

== ENCOUNTER 2020-08-13 11:45 | Emergency (ER) | payer MEDICARE | END 2020-08-13 12:53 | disposition left against medical advice (07) | LOC: ED 11:45 | DX: M54.2 Cervicalgia (principal); Z53.21 Procedure and treatment not carried out due to patient leaving prior to being seen by health care provider ==

== ENCOUNTER 2020-08-29 11:34 | Observation (INO) | payer MEDICARE ==
--- NOTE | 2020-08-29 12:09 | Emergency Department Report ---
HPI - General Chief Complaint: Dyspnea/Respdistress Time Seen by Provider: 08/29/20 11:56 - HPI HPI: This is a 59-year-old -M[place]ese female presents to the emergency department with a complaint of getting a piece of peach stuck in her throat. The patient has been dealing with some shortness of breath and mild chest discomfort since last night. She says that she was feeling short of breath while eating the peach and thinks that she was not able to fully swallow it. She says that her son told her to eat some bread to try and dislodge it but she says that this did not help with her discomfort. She has been able to drink 2 bottles of water without any regurgitation but once again still complains of this discomfort in her lower throat. Patient has a past medical history of COPD but is not oxygen dependent. She has a history of coronary artery disease with previous [place], hypertension, high cholesterol, diabetes , degenerative disc disea se, vertigo, and she has a history of a CVA from 2018 that left her with some issues "with my esophagus." The patient went to [facility] on Friday night for an elevated heart rate, this same shortness of breath, and was found to have a blood sugar of about 300 but says that she was not admitted at that time. ED Past Medical Hx - Past Medical History Previous Medical History?: Yes Hx Hypertension: Yes Hx CVA: Yes (05/2017) Hx Heart Attack/AMI: Yes Hx Congestive Heart Failure: No Hx Diabetes: Yes Hx Deep Vein Thrombosis: Yes Hx Pulmonary Embolism: No Hx GERD: Yes Hx Liver Disease: No Hx Renal Disease: Yes Hx Arthritis: Yes Hx Seizures: No Hx Kidney Stones: No Hx Asthma: No Hx COPD: Yes Hx Tuberculosis: No Hx Dementia: No Additional medical history: High cholesterol, degenarative disc disease, anxiety, HEART MURMUR. vertigo - Surgical History Past Surgical History?: Yes Hx Coronary Stent: No Hx Internal Defibrillator: No Additional Surgical History: right rotator cuff, - Social History Smoking Status: Never Smoker Substance Use Type: None - Medications Home Medications: Home Medications Medication Instructions Recorded Confirmed Last Taken Type Acetaminophen/Codeine [Tylenol 1 tab PO Q6H PRN #20 tab 11/23/14 07/18/17 Unkn own Rx /Codeine # 3 tab] Fluticasone [Flonase] 1 spray NS QDAY #1 bottle 08/17/16 07/18/17 Unknown Rx amLODIPine 1 tab PO QDAY #30 tablet 08/17/16 07/18/17 Unknown Rx raNITIdine HCL [Heartburn Relief] 150 mg PO DAILY #30 tablet 08/17/16 07/18/17 Unknown Rx AtorvaSTATin [Lipitor] 40 mg PO QHS 06/02/17 07/18/17 Unknown History Clopidogrel [Plavix] 75 mg PO QDAY 06/02/17 07/18/17 Unknown History HYDROcodone/APAP 5-325 [[place] 5 mg PO DAILY 06/02/17 07/18/17 Unknown History 5-325 mg TAB] glipiZIDE [Glipizide] 10 mg PO DAILY 06/02/17 07/18/17 Unknown History hydrALAZINE [Apresoline TAB] 25 mg PO Q8HR 06/02/17 07/18/17 Unknown History hydroCHLOROthiazide [HCTZ] 12.5 mg PO QDAY 06/02/17 07/18/17 Unknown History Aspirin [Aspir-Low] 81 mg PO DAILY 07/18/17 07/18/17 Unknown History Meclizine [Antivert] 25 mg PO TID PRN #10 tablet 09/05/18 Unknown Rx Ondansetron [Zofran Odt] 4 mg PO Q8HR #10 tab.rapdis 09/05/18 Unknown Rx traMADoL [Ultram 50 MG tab] 50 mg PO Q6HR PRN #15 tablet 03/03/20 Unknown Rx Acetaminophen [8 Hour Pain Relief] 650 mg PO Q8HR PRN #30 tablet.er 04/09/20 Unknown Rx lisinopriL [Zestril TAB] 1 tab PO BID #60 tablet 04/09/20 Unknown Rx ED Review of Systems ROS: Stated complaint: SOMETHNG STUCK IN THROAT Other details as noted in HPI Comment: All other systems reviewed and negative Constitutional: denies: chills, fever Eyes: denies: eye pain, vision change ENT: throat pain. denies: ear pain Respiratory: shortness of breath. denies: cough Cardiovascular: chest pain. denies: palpitations Gastrointestinal: denies: abdominal pain, vomiting Genitourinary: denies: dysuria, discharge Musculoskeletal: denies: back pain, arthralgia Skin: denies: rash, lesions Neurological: denies: headache, weakness Physical Exam - Physical Exam Vital Signs: Vital Signs 08/29/20 11:45 Temperature 98.7 F Pulse Rate 74 Respiratory 20 Rate Blood Pressure 135/68 O2 Sat by Pulse 99 Oximetry Physical Exam: GENERAL: The patient is well-developed well-nourished. HENT: Normocephalic. Atraumatic. Patient has moist mucous membranes. Posterior pharynx is clear without tonsillar hypertrophy, erythema or exudates. No drooling or trismus. EYES: Extraocular motions are intact. No nystagmus. NECK: Supple. Trachea is midline. CHEST/LUNGS: Clear to auscultation. There is no respiratory distress noted. HEART/CARDIOVASCULAR: Regular. There is no tachycardia. There is no murmur. ABDOMEN: Abdomen is soft, nontender. Patient has normal bowel sounds. There is no abdominal distention. SKIN: Skin is warm and dry. NEURO: The patient is awake, alert, and oriented. The patient is cooperative. The patient has no focal neurologic deficits. Normal speech. Cranial nerves II through XII grossly intact. No pronator drift or dysmetria. MUSCULOSKELETAL: There is no tenderness or deformity. There is no limitation range of motion. ED Course Vital Signs 08/29/20 11:45 Temperature 98.7 F Pulse Rate 74 Respiratory 20 Rate Blood Pressure 135/68 O2 Sat by Pulse 99 Oximetry ED Medical Decision Making - Lab Data Result diagrams: 08/29/20 12:22 08/29/20 12:22 Lab Results 08/29/20 08/29/20 Range/Units 12:22 12:22 WBC 7.1 (4.5-11.0) K/mm3 RBC 3.91 (3.65-5.03) M/mm3 Hgb 11.7 (10.1-14.3) gm/dl Hct 33.2 (30.3-42.9) % MCV 85 (79-97) fl MCH 30 (28-32) pg MCHC 35 H (30-34) % RDW 13.9 (13.2-15.2) % Plt Count 263 (140-440) K/mm3 Lymph % (Auto) 27.5 (13.4-35.0) % [place] % (Auto) 5.2 (0.0-7.3) % Eos % (Auto) 1.6 (0.0-4.3) % Baso % (Auto) 0.7 (0.0-1.8) % Lymph # (Auto) 1.9 (1.2-5.4) K/mm3 [place] # (Auto) 0.4 (0.0-0.8) K/mm3 Eos # (Auto) 0.1 (0.0-0.4) K/mm3 Baso # (Auto) 0.0 (0.0-0.1) K/mm3 Seg Neutrophils % 65.0 (40.0-70.0) % Seg Neutrophils # 4.6 (1.8-7.7) K/mm3 Sodium 136 L (137-145) mmol/L Potassium 4.5 (3.6-5.0) mmol/L Chloride 99.4 (98-107) mmol/L Carbon Dioxide 23 (22-30) mmol/L Anion Gap 18 mmol/L BUN 20 H (7-17) mg/dL Creatinine 1.3 H (0.6-1.2) mg/dL Estimated GFR 51 ml/min BUN/Creatinine Ratio 15 % Glucose 234 H (65-100) mg/dL Calcium 10.4 H (8.4-10.2) mg/dL Troponin T < 0.010 (0.00-0.029) ng/mL - EKG Data -: EKG Interpreted by Me EKG shows normal: sinus rhythm, axis, intervals, QRS complexes (Septal Q waves, LVH), ST-T waves (Septal T wave inversions) Rate: normal - EKG Data When compared to previous EKG there are: changes noted (Previous EKG from 08/2018 did not show the septal Q waves or T wave inversions) Interpretation: other (Sinus rhythm at 67 bpm, normal axis, normal intervals, Q waves to the septal leads, T wave inversions to the septal leads. No ST elevation [place]) - Radiology Data Radiology results: image reviewed interpreted by me: Chest x-ray does not show any acute process. There are no pleural effusions, obvious pneumonia and there is no pneumothorax. No widened mediastinum. X-ray of the soft tissue of the neck does not show any obvious radiopaque foreign body. - Medical Decision Making Initially this patient came in with a complaint that she felt that a peach that she had been eating had gotten stuck in her throat. However, the patient says that she ate some bread and drank 2 bottles of water. This does not appear consistent with any food bolus impaction, but the patient still has this globus sensation. Patient also has a history of CVA for which she has some residual issues with her "esophagus." Patient also said that she has been having some le ft-sided chest pain and shortness of breath since last night. An EKG was done that does not have any morphology consistent with ST elevation myocardial infarction. Chest x-ray does not show any pneumonia, pleural effusions, pneumothorax, widened mediastinum, or any other acute process. X-ray of the soft tissue of the neck does not show any radiopaque foreign body. The patient's labs have been mostly unremarkable thus far including CBC, metabolic panel, negative troponins x2. The patient has some mild hyperglycemia but does not appear to be in diabetic ketoacidosis. Patient has a heart score of 4 which is moderate. She has not had a stress test recently. Patient will be admitted to the hospital for further evaluation and treatment was accepted for admission by the hospitalist, Dr. Dorman. Critical Care Time: No Critical care attestation.: If time is entered above; I have spent that time in minutes in the direct care of this critically ill patient, excluding procedure time. ED Disposition Clinical Impression: Hyperglycemia Chest pain Qualifiers: Chest pain type: unspecified Qualified Code(s): R07.9 - Chest pain, unspecified Dyspnea Qualifiers: Dyspnea type: shortness of breath Qualified Code(s): R06.02 - Shortness of breath; R06.00 - Dyspnea, unspecified; R06.01 - Orthopnea Coronary artery disease Qualifiers: Coronary Disease-Associated Artery/Lesion type: [place] artery [place] vs. transplanted heart: [place] heart Associated angina: unspecified whether angina present Qualified Code(s): I25.10 - Atherosclerotic heart disease of [place] coronary artery without angina pectoris Disposition: - TO HOME OR SELFCARE Is pt being admited?: No Condition: Fair Time of Disposition: 13:32 Heart Score - HEART Score History: Slightly suspicious EKG: Non-specific Age: 45-65 Risk factors: > 3 risk factors or hx of atherosclerotic disease Troponin: < normal limit HEART Score: 4 - EKG Read Time Time EKG Completed: 12:57 EKG Read Time: 01:00 - Critical Actions Critical Actions: 4-6 pts:12-16.6% risk of adverse cardiac event. Should be admitted
[2020-08-29 12:45] LABS: Basophils % (Auto) 0.7 % (0.0-1.8); Eosinophils # (Auto) 0.1 K/mm3 (0.0-0.4); Eosinophils % (Auto) 1.6 % (0.0-4.3); Hematocrit 33.2 % (30.3-42.9); Hemoglobin 11.7 gm/dl (10.1-14.3); Lymphocytes # (Auto) 1.9 K/mm3 (1.2-5.4); Lymphocytes % (Auto) 27.5 % (13.4-35.0); Mean Corpuscular HGB Conc 35 % (30-34); Mean Corpuscular Volume 85 fl (79-97); Monocytes # (Auto) 0.4 K/mm3 (0.0-0.8); Monocytes % (Auto) 5.2 % (0.0-7.3); Platelet Count 263 K/mm3 (140-440); Red Blood Count 3.91 M/mm3 (3.65-5.03); Red Cell Distribution Width 13.9 % (13.2-15.2)
[2020-08-29 13:08] LABS: BUN/Creatinine Ratio 15; Blood Urea Nitrogen 20 mg/dL (7-17); Calcium 10.4 mg/dL (8.4-10.2); Hemolysis Index 4
--- NOTE | 2020-08-29 13:33 | XRay Report ---
SOFT TISSUE NECK HISTORY: Food stuck in throat COMPARISON: None. TECHNIQUE: AP and lateral view(s) of the neck obtained. FINDINGS: Epiglottis: No significant abnormality. Airway: No significant abnormality. Retropharyngeal soft tissues: No significant abnormality. Bones: Mild degenerative disc disease at C5-6 and C6-7 Additional findings: None. IMPRESSION: 1. No appreciable foreign bodies in the neck. Signer Name: Andrea Jo MD Signed: 08/29/2020 1:29 PM Workstation Name: [id number]
--- NOTE | 2020-08-29 13:37 | XRay Report ---
CHEST 2 VIEWS INDICATION: SOB. COMPARISON: 07/18/2017. FINDINGS: Support devices: None. Heart: Within normal limits. Lungs/Pleura: No acute air space or interstitial disease. No significant pleural effusion. IMPRESSION: No acute findings. Signer Name: Ryder Murray MD Signed: 08/29/2020 1:32 PM Workstation Name: [id number]
[2020-08-30] MEDS: INSULIN LISPRO 100 UNIT/ML SUB-Q SCH ×4 (01:22→17:26)
[2020-08-30] MEDS ORDERED: MECLIZINE 25 MG TAB PO PRN (01:40)
[2020-08-30] MEDS ORDERED: traMADol 50 MG TAB PO PRN (01:40)
[2020-08-30] MEDS ORDERED: ACETAMINOPHEN W/CODEINE 300-30 MG TAB PO PRN (01:40)
[2020-08-30] MEDS ORDERED: ACETAMINOPHEN 650 MG PO PRN (01:40)
--- NOTE | 2020-08-30 01:40 | History and Physical Report ---
History of Present Illness Date of examination: 08/29/20 Date of admission: 08/29/20 13:33 Chief complaint: Chest pain since last night History of present illness: 59-year-old female with history of hypertension, cerebrovascular accident coronary artery disease and diabetes comes in for chest tightness since last night. No radiation. No diaphoresis. Chest pain is about 5 on a scale of 1- 10. Intermittent in nature. Patient also felt a foreign body sensation in her throat which is resolved. Able to drink without any problem. No signs of GI obstruction. No exacerbating or precipitating for factors for chest pain. - Past Medical History Previous Medical History?: Yes --Hypertension: Yes --CVA: Yes (05/2017) --Heart Attack/AMI: Yes --Diabetes: Yes --Deep Vein Thrombosis: Yes --GERD: Yes --Renal Disease: Yes --Arthritis: Yes --COPD: Yes Additional medical history: High cholesterol, degenarative disc disease, anxiety, HEART MURMUR. vertigo - Surgical History Past Surgical History?: Yes Additional Surgical History: right rotator cuff, - Social History Smoking Status: Never Smoker Substance Use Type: None - Family history --Hypertension Review of Systems ROS: Stated complaint: SOMETHNG STUCK IN THROAT Other details as noted in HPI Comment: All other systems reviewed and negative Constitutional: denies: chills, fever Eyes: denies: eye pain, vision change ENT: throat pain. denies: ear pain Respiratory: shortness of breath. denies: cough Cardiovascular: chest pain. denies: palpitations Gastrointestinal: denies: abdominal pain, vomiting Genitourinary: denies: dysuria, discharge Musculoskeletal: denies: back pain, arthralgia Skin: denies: rash, lesions Neurological: denies: headache, weakness Medications and Allergies Allergies Allergy/AdvReac Type Severity Reaction Status Date / Time aspirin Allergy Unknown Verified 06/14/15 14:10 NSAIDS (Non-Steroidal Allergy Vomiting Verified 06/14/15 14:10 Anti-Inflamma shellfish derived Allergy Swelling Verified 06/14/15 14:10 Penicillins AdvReac Swelling Verified 06/14/15 14:10 Home Medications Medication Instructions Recorded Confirmed Last Taken Type Acetaminophen/Codeine [Tylenol 1 tab PO Q6H PRN #20 tab 11/23/14 07/18/17 Unknown Rx /Codeine # 3 tab] Fluticasone [Flonase] 1 spray NS QDAY #1 bottle 08/17/16 07/18/17 Unknown Rx amLODIPine 1 tab PO QDAY #30 tablet 08/17/16 07/18/17 Unknown Rx raNITIdine HCL [Heartburn Relief] 150 mg PO DAILY #30 tablet 08/17/16 07/18/17 Unknown Rx AtorvaSTATin [Lipitor] 40 mg PO QHS 06/02/17 07/18/17 Unknown History Clopidogrel [Plavix] 75 mg PO QDAY 06/02/17 07/18/17 Unknown History HYDROcodone/APAP 5-325 [[place] 5 mg PO DAILY 06/02/17 07/18/17 Unknown History 5-325 mg TAB] glipiZIDE [Glipizide] 10 mg PO DAILY 06/02/17 07/18/17 Unknown History hydrALAZINE [Apresoline TAB] 25 mg PO Q8HR 06/02/17 07/18/17 Unknown History hydroCHLOROthiazide [HCTZ] 12.5 mg PO QDAY 06/02/17 07/18/17 Unknown History Aspirin [Aspir-Low] 81 mg PO DAILY 07/18/17 07/18/17 Unknown History Meclizine [Antivert] 25 mg PO TID PRN #10 tablet 09/05/18 Unknown Rx Ondansetron [Zofran Odt] 4 mg PO Q8HR #10 tab.rapdis 09/05/18 Unknown Rx traMADoL [Ultram 50 MG tab] 50 mg PO Q6HR PRN #15 tablet 03/03/20 Unknown Rx Acetaminophen [8 Hour Pain Relief] 650 mg PO Q8HR PRN #30 tablet.er 04/09/20 Unknown Rx lisinopriL [Zestril TAB] 1 tab PO BID #60 tablet 04/09/20 Unknown Rx Active Meds: Active Medications Insulin Human Lispro (Insulin Lispro 100 Unit/Ml) 0 unit SUB-Q [facility]; Protocol Last Admin: 08/30/20 01:22 Dose: 4 unit Documented by: Exam - Constitutional Vitals: Temp Pulse Resp BP Pulse Ox 98.3 F 59 L 18 129/61 96 08/30/20 00:49 08/30/20 00:49 08/30/20 00:49 08/30/20 00:49 08/30/20 00:49 General appearance: Present: no acute distress, well-nourished - EENT Eyes: Present: PERRL ENT: hearing intact, clear oral mucosa - Neck Neck: Present: supple, normal ROM - Respiratory Respiratory effort: normal Respiratory: bilateral: CTA - Cardiovascular Heart rate: 78 Rhythm: regular Heart Sounds: Present: S1 & S2. Absent: rub, click - Extremities Extremities: pulses symmetrical, No edema Peripheral Pulses: within normal limits - Abdominal General gastrointestinal: Present: soft, non-tender, non-distended, normal bowel sounds Female genitourinary: Present: normal - Integumentary Integumentary: Present: clear, warm, dry - Musculoskeletal Musculoskeletal: gait normal, strength equal bilaterally - Psychiatric Psychiatric: appropriate mood/affect, intact judgment & insight - Neurologic Neurologic: CNII-XII intact, moves all extremities HEART Score - HEART Score EKG: Non-specific Age: 45-65 Risk factors: > 3 risk factors or hx of atherosclerotic disease Troponin: Troponin T < 0.010 ng/mL (0.00-0.029) 08/29/20 18:51 Troponin: < normal limit - Critical Actions Critical Actions: 4-6 pts:12-16.6% risk of adverse cardiac event. Should be admitted Results - Labs CBC & Chem 7: 08/29/20 12:22 08/29/20 12:22 Labs: Laboratory Last Values WBC 7.1 K/mm3 (4.5-11.0) 08/29/20 12:22 RBC 3.91 M/mm3 (3.65-5.03) 08/29/20 12:22 Hgb 11.7 gm/dl (10.1-14.3) 08/29/20 12:22 Hct 33.2 % (30.3-42.9) 08/29/20 12:22 MCV 85 fl (79-97) 08/29/20 12:22 MCH 30 pg (28-32) 08/29/20 12:22 MCHC 35 % (30-34) H 08/29/20 12:22 RDW 13.9 % (13.2-15.2) 08/29/20 12:22 Plt Count 263 K/mm3 (140-440) 08/29/20 12:22 Lymph % (Auto) 27.5 % (13.4-35.0) 08/29/20 12:22 [place] % (Auto) 5.2 % (0.0-7.3) 08/29/20 12:22 Eos % (Auto) 1.6 % (0.0-4.3) 08/29/20 12:22 Baso % (Auto) 0.7 % (0.0-1.8) 08/29/20 12:22 Lymph # (Auto) 1.9 K/mm3 (1.2-5.4) 08/29/20 12:22 [place] # (Auto) 0.4 K/mm3 (0.0-0.8) 08/29/20 12:22 Eos # (Auto) 0.1 K/mm3 (0.0-0.4) 08/29/20 12:22 Baso # (Auto) 0.0 K/mm3 (0.0-0.1) 08/29/20 12:22 Seg Neutrophils % 65.0 % (40.0-70.0) 08/29/20 12:22 Seg Neutrophils # 4.6 K/mm3 (1.8-7.7) 08/29/20 12:22 Sodium 136 mmol/L (137-145) L 08/29/20 12:22 Potassium 4.5 mmol/L (3.6-5.0) 08/29/20 12:22 Chloride 99.4 mmol/L (98-107) 08/29/20 12:22 Carbon Dioxide 23 mmol/L (22-30) 08/29/20 12:22 Anion Gap 18 mmol/L 08/29/20 12:22 BUN 20 mg/dL (7-17) H 08/29/20 12:22 Creatinine 1.3 mg/dL (0.6-1.2) H 08/29/20 12:22 Estimated GFR 51 ml/min 08/29/20 12:22 BUN/Creatinine Ratio 15 % 08/29/20 12:22 Glucose 234 mg/dL (65-100) H 08/29/20 12:22 POC Glucose 274 mg/dL (70-105) H 08/30/20 00:56 Calcium 10.4 mg/dL (8.4-10.2) H 08/29/20 12:22 Troponin T < 0.010 ng/mL (0.00-0.029) 08/29/20 18:51 - Imaging and Cardiology EKG: report reviewed (Sinus rhythm no acute ST-T wave changes) MRI - head: image reviewed Imaging and Cardiology: Chest x-ray No acute findings Soft tissue neck x-ray No acute findings Assessment and Plan Advance Directives: Yes - Patient Problems (1) Acute coronary syndrome Current Visit: No Status: Acute Plan to address problem: Serial troponins and Lexiscan in the morning (2) RON (acute kidney injury) Current Visit: No Status: Acute Plan to address problem: IV fluids for now Vasomotor nephropathy (3) Hyperlipidemia Current Visit: No Status: Chronic Qualifiers: Hyperlipidemia type: mixed hyperlipidemia Qualified Code(s): E78.2 - Mixed hyperlipidemia Plan to address problem: Continue statins (4) T2DM (type 2 diabetes mellitus) Current Visit: No Status: Chronic Qualifiers: Diabetes mellitus keno terminal operator insulin use: without usp use Plan to address problem: Check hemoglobin A1c Adjust medications Sliding scale coverage for now and oral hypoglycemics (5) HTN (hypertension) Current Visit: Yes Status: Chronic Qualifiers: Hypertension type: essential hypertension Qualified Code(s): I10 - Essential (primary) hypertension Plan to address problem: Blood pressure controlled Continue antihypertensives and adjust medications as necessary (6) Coronary artery disease Current Visit: Yes Status: Chronic Qualifiers: Coronary Disease-Associated Artery/Lesion type: [place] artery [place] vs. transplanted heart: [place] heart Plan to address problem: Continue Plavix and aspirin (7) History of CVA (cerebrovascular accident) Current Visit: Yes Status: Chronic Plan to address problem: Continue Plavix and aspirin DAPT (8) DVT prophylaxis Current Visit: No Status: Acute Plan to address problem: On heparin and GI prophylaxis
[2020-08-30] MEDS ORDERED: METOCLOPRAMIDE 10 MG/2 ML INJ IV PRN (01:42)
[2020-08-30] MEDS ORDERED: ONDANSETRON 4 MG/2 ML INJ IV PRN (01:42)
[2020-08-30] MEDS ORDERED: HYDROmorphone 1 MG/1 ML INJ IV PRN (01:42)
[2020-08-30] MEDS ORDERED: MORPHINE 2 MG/1 ML INJ IV PRN (01:42)
[2020-08-30] MEDS ORDERED: ACETAMINOPHEN 325 MG TAB PO PRN (01:42)
[2020-08-30] MEDS: FAMOTIDINE 20 MG/2 ML INJ IV SCH ×2 (03:21→12:08)
[2020-08-30] MEDS: hydrALAZINE 25 MG TAB PO SCH ×2 (06:05→17:25)
[2020-08-30] MEDS: ONDANSETRON 4 MG ODT TAB PO SCH ×2 (06:05→17:26)
[2020-08-30] MEDS ORDERED: glipiZIDE 10 MG TAB PO SCH (08:00)
[2020-08-30] MEDS ORDERED: SODIUM CHLORIDE 0.9% 1000 ML 1,000 ML IV SCH (08:45)
[2020-08-30] MEDS ORDERED: REGADENOSON 0.4 MG/5 ML INJ IV ONE (09:00)
--- NOTE | 2020-08-30 09:56 | Electrocardiograph Report ---
[facility] Test Date: 2020-08-29 Test Time: 12:57:45 Pat Name: COLBY MALCOLM Department: Room: A479 Gender: F Physical Science Technician: ALETHA : 1960 Requested By: ARISTEO GOMEZ Order Number: [id number] Reading MD: Elan Dawn Measurements Intervals [place] Rate: 67 P: 40 NM: 191 QRS: 4 QRSD: 102 T: 41 QT: 407 QTc: 431 Interpretive Statements Sinus rhythm Left ventricular hypertrophy non specific st-t No previous ECG available for comparison Electronically Signed On 08-30-2020 9:56:17 EDT by Elan Dawn
[2020-08-30] MEDS ORDERED: HEPARIN 5,000 UNIT/1 ML VIAL SUB-Q SCH ×2 (10:00)
[2020-08-30] MEDS ORDERED: LISINOPRIL 20 MG TAB PO SCH (10:00)
[2020-08-30] MEDS ORDERED: CLOPIDOGREL 75 MG TAB PO SCH (10:00)
[2020-08-30] MEDS ORDERED: amLODIPine 10 MG TAB PO SCH (10:00)
[2020-08-30] MEDS ORDERED: FLUTICASONE PROPIONATE NASAL SPRAY 16 GM NS SCH (10:00)
[2020-08-30] MEDS ORDERED: ASPIRIN EC 81 MG TAB PO SCH (10:00)
[2020-08-30 10:47] LABS: Calcium 9.8 mg/dL (8.4-10.2)
--- NOTE | 2020-08-30 11:24 | Event Note ---
Date: 08/30/20 (Outpatient cardio follow-up) Patient has outpatient cardiology follow-up scheduled with Dr Cerda, [facility] heart specialists in our [place] location on 09/18/2020 at 12:15 PM #[id number] CHRISTA Triplett [facility] in collaboration with Dr Dawn, [facility]
--- NOTE | 2020-08-30 12:06 | Nuclear Medicine Report ---
APPROVED REPORT Exam: Nuclear Stress Test Indication: Chest pain BMI: 0 Stress Test Details Stress Test: Pharmacologic stress testing performed using 0.4 mg of regadenoson per 5 mL given IV over 10 seconds. HR Resting HR: 62 bpm Max HR Achieved: 107 bpm Max Heart Rate (APMHR): 160 bpm Target HR (85% APMHR): 136 bpm % of APMHR: 66 Recovery HR: 88 bpm HR response to stress: Normal HR response to stress BP Resting BP: 123/56 mmHg Max BP: 143/67 mmHg Recovery BP: 125/60 mmHg BP response to stress: Normal blood pressure response to stress. ECG Resting ECG: Sinus Rhythm Stress ECG: Sinus Tachycardia Recovery ECG: Sinus Rhythm Clinical Reason for Termination: Completed protocol Stress Symptoms: Headache NM EXAM: Myocardial Perfusion REST/STRESS Imaging Protocol: Rest Tc-99m/Stress Tc-99m 1 day Resting Data Rest SPECT myocardial perfusion imaging was performed in supine position 45 minutes following the intravenous injection of 10 mCi of Tc-99m Myoview. Time of rest injection: 09 Date: 08/30/2020 Pharmacologic Stress Pharmacologic stress test was performed by injecting Regadenoson 0.4 mg IV push followed by the intravenous injection of 28 mCi of Tc-99m Myoview. Time of stress injection: 1015 Date: 08/30/2020 Gated Stress SPECT was performed 30 minutes after stress injection. Study Quality Study: excellent Lung Uptake: Normal Study Data TID = 1.08. Perfusion Wall Motion The rest and stress images show normal left ventricular wall motion. Nuclear Conclusion ECG Findings: negative for ischemia Clinical Findings: negative for ischemia Nuclear Findings: negative for ischemia Exercise Capacity: not assessed Left Ventricular Function: normal Normal study. No scintigraphic evidence for myocardial ischemia or scar. Normal left ventricular size and function with no regional wall motion abnormalities.
--- NOTE | 2020-08-30 16:12 | Discharge Summary ---
Providers - Providers Date of Admission: 08/29/20 13:33 Date of discharge: 08/30/20 Attending physician: DONG JONES Primary care physician: TREATMENT COORDINATOR Hospitalization Condition: Fair Pertinent studies: Chest x-ray, soft tissue neck, myocardial stress test Hospital course: This is a 59-year-old female with history of hypertension and CVA, coronary artery disease and diabetes presented to the hospital with complaints of chest tightness since last night. Patient was evaluated in the ER, initial cardiac enzyme and EKG was unremarkable, chest x-ray showed no infiltrates. Patient was admitted and underwent myocardial stress test which was normal. Patient noted to have elevated blood sugar with A1c 12.6. Patient stated that she was on Novolin 70/30 15 units twice a day. Patient was encouraged for better glycemic control with consistent carb diet and to increase her 70/30 to 20units BID. Discharge planning management was thoroughly discussed with the patient and she verbalized understanding. Patient was then discharged home in stable condition with outpatient follow-up. Disposition: DC- TO HOME OR SELFCARE Final Discharge Diagnosis (Prints w/discharge instructions): Atypical chest pain, likely due to GERD. CKD at baseline, creatinine was 1.4 on 2018. Hyperte nsion, moderately controlled. Diabetes mellitus type 2 with hyperglycemia, A1c 12.6. Hyperlipidemia, continue statin. Coronary artery disease, continue aspirin Plavix and statin Time spent for discharge: 34 minutes Core Measure Documentation - Palliative Care Palliative Care/ Comfort Measures: Not Applicable - Core Measures Any of the following diagnoses?: none Exam - Physical Exam Narrative exam: GENERAL: well-developed and well-nourished elderly female lying on bed appeared to be in no discomfort. HEENT: Normocephalic. Atraumatic. No conjunctival congestion or icterus. Patient has moist mucous membranes. NECK: Supple. Trachea midline. CHEST/LUNGS: Clear to auscultated bilaterally, breathing nonlabored. No wheezes crackles or rhonchi. HEART/CARDIOVASCULAR: Regular in rate and rhythm. S1 and S2 positive. ABDOMEN: Abdomen is soft, nontender. Patient has normal bowel sounds. SKIN: There is no rash. Warm and dry. NEURO: No focal motor deficit. Follows command. MUSCULOSKELETAL: No joint effusion or tenderness. EXTRIMITY: No edema, no cyanosis or clubbing. PSYCH: Cooperative. - Constitutional Vitals: Temp Pulse Resp BP Pulse Ox 98.0 F 60 18 132/60 98 08/30/20 11:48 08/30/20 11:52 08/30/20 11:48 08/30/20 11:52 08/30/20 11:48 Plan Activity: advance as tolerated Weight Bearing Status: Weight Bear as Tolerated Diet: low fat, low salt, diabetic Special Instructions: record blood sugar diary Additional Instructions: Please increase your 70/30 insulin to 20 units before breakfast and before dinner. Your A1c is 12.6. Please maintain strict glycemic control and continue consistent carb diet. Please follow-up with your PCP in 1 week. Follow up with: PRIMARY CAREMD [Primary Care Provider] - 7 Days
[2020-08-30 18:25] VITALS: BP 130/59
== END 2020-08-30 18:38 | disposition home or self-care (01) ==
LOC: ED 11:34 → 4A 13:33
PROVIDERS: ADMIT Internal Medicine; ATTEND Internal Medicine
DX: I24.9 Acute ischemic heart disease, unspecified (principal); N17.9 Acute kidney failure, unspecified; I10 Essential (primary) hypertension; E11.65 Type 2 diabetes mellitus with hyperglycemia; E78.5 Hyperlipidemia, unspecified; I25.10 Atherosclerotic heart disease of native coronary artery without angina pectoris; J44.9 Chronic obstructive pulmonary disease, unspecified; M19.90 Unspecified osteoarthritis, unspecified site; K21.9 Gastro-esophageal reflux disease without esophagitis; E78.00 Pure hypercholesterolemia, unspecified; N28.9 Disorder of kidney and ureter, unspecified; R06.00 Dyspnea, unspecified; R07.89 Other chest pain; Z86.73 Personal history of transient ischemic attack (TIA), and cerebral infarction without residual deficits; Z86.718 Personal history of other venous thrombosis and embolism; Z79.82 Long term (current) use of aspirin; Z79.899 Other long term (current) drug therapy; Z98.890 Other specified postprocedural states; Z79.02 Long term (current) use of antithrombotics/antiplatelets
CPT/HCPCS: 36415; 70360; 71046; 78452; 80048; 82962; 83036; 84484; 85025; 93005; 93017; 96372; 96374; 96376; 99285; A9502; G0378; J1644; J2785; J1815; Q0162

== ENCOUNTER 2021-03-11 16:54 | Emergency (ER) | payer OTHER, MEDICARE ==
[2021-03-11 17:03] VITALS: BP 139/71
[2021-03-11] MEDS ORDERED: ONDANSETRON 4 MG ODT TAB PO ONE ×2 (20:18→23:15)
--- NOTE | 2021-03-11 20:18 | Emergency Department Report ---
ED General Adult HPI - General Chief complaint: Dyspnea/Respdistress Stated complaint: DIFF BREATHHING Time Seen by Provider: 03/11/21 19:58 Source: patient Mode of arrival: Ambulatory Limitations: Physical Limitation - History of Present Illness Initial comments: Patient presents with a several day history of URI symptoms. She had cough and congestion. She has had muscle aches and body aches. Patient reports fevers and chills. She does report generalized malaise as well as generalized weakness. She has had no known sick contact. She does not think she has coronavirus. She states that she has not been vaccinated against the flu however. She did not get a COVID shot either. Patient has had no GI complaints or complaints. She came in for evaluation treatment because she was having trouble breathing. - Related Data Home Medications Medication Instructions Recorded Confirmed Last Taken AtorvaSTATin [Lipitor] 40 mg PO QHS 06/02/17 07/18/17 Unknown Clopidogrel [Plavix] 75 mg PO QDAY 06/02/17 07/18/17 Unknown HYDROcodone/APAP 5-325 [Acme 5 mg PO DAILY 06/02/17 07/18/17 Unknown 5-325 mg TAB] glipiZIDE [Glipizide] 10 mg PO DAILY 06/02/17 07/18/17 Unknown hydrALAZINE [Apresoline TAB] 25 mg PO Q8HR 06/02/17 07/18/17 Unknown hydroCHLOROthiazide [HCTZ] 12.5 mg PO QDAY 06/02/17 07/18/17 Unknown Aspirin [Aspir-Low] 81 mg PO DAILY 07/18/17 07/18/17 Unknown Previous Rx's Medication Instructions Recorded Last Taken Type Acetaminophen/Codeine [Tylenol 1 tab PO Q6H PRN #20 tab 11/23/14 Unknown Rx /Codeine # 3 tab] Fluticasone [Flonase] 1 spray NS QDAY #1 bottle 08/17/16 Unknown Rx amLODIPine 1 tab PO QDAY #30 tablet 08/17/16 Unknown Rx raNITIdine HCL [Heartburn Relief] 150 mg PO DAILY #30 tablet 08/17/16 Unknown Rx Meclizine [Antivert] 25 mg PO TID PRN #10 tablet 09/05/18 Unknown Rx Ondansetron [Zofran ODT TAB] 4 mg PO Q8HR #10 tab.rapdis 09/05/18 Unknown Rx traMADoL [Ultram 50 MG tab] 50 mg PO Q6HR PRN #15 tablet 03/03/20 Unknown Rx lisinopriL [Zestril TAB] 1 tab PO BID #60 tablet 04/09/20 Unknown Rx Albuterol Sulfate [Proventil Hfa] 2 puff IH 4XD #1 inh 03/12/21 Unknown Rx Benzonatate [Tessalon Perles] 100 mg PO Q8HR #21 cap 03/12/21 Unknown Rx Allergies Allergy/AdvReac Type Severity Reaction Status Date / Time aspirin Allergy Unknown Verified 03/11/21 16:56 NSAIDS (Non-Steroidal Allergy Vomiting Verified 03/11/21 16:56 Anti-Inflamma shellfish derived Allergy Swelling Verified 03/11/21 16:56 Penicillins AdvReac Swelling Verified 03/11/21 16:56 ED Review of Systems ROS: Stated complaint: DIFF BREATHHING Other details as noted in HPI Comment: All other systems reviewed and negative Constitutional: fever Eyes: denies: vision change ENT: denies: epistaxis Respiratory: see HPI Cardiovascular: denies: chest pain Endocrine: denies: unexplained weight loss Gastrointestinal: denies: vomiting Genitourinary: denies: dysuria Musculoskeletal: denies: back pain Skin: denies: rash Neurological: denies: headache Hematological/Lymphatic: denies: easy bruising ED Past Medical Hx - Past Medical History Hx Hypertension: Yes Hx CVA: Yes (05/2017) Hx Heart Attack/AMI: Yes Hx Congestive Heart Failure: No Hx Diabetes: Yes Hx Deep Vein Thrombosis: Yes Hx Pulmonary Embolism: No Hx GERD: Yes Hx Liver Disease: No Hx Renal Disease: Yes Hx Arthritis: Yes Hx Seizures: No Hx Kidney Stones: No Hx Asthma: No Hx COPD: Yes Hx Tuberculosis: No Hx Dementia: No Additional medical history: High cholesterol, degenarative disc disease, anxiety, HEART MURMUR. vertigo - Surgical History Hx Coronary Stent: No Hx Internal Defibrillator: No Additional Surgical History: right rotator cuff, - Family History Family history: hypertension - Social History Smoking Status: Never Smoker - Medications Home Medications: Home Medications Medication Instructions Recorded Confirmed Last Taken Type Acetaminophen/Codeine [Tylenol 1 tab PO Q6H PRN #20 tab 11/23/07/18/17 Unknown Rx /Codeine # 3 tab] Fluticasone [Flonase] 1 spray NS QDAY #1 bottle 08/17/16 07/18/17 Unknown Rx amLODIPine 1 tab PO QDAY #30 tablet 08/17/16 07/18/17 Unknown Rx raNITIdine HCL [Heartburn Relief] 150 mg PO DAILY #30 tablet 08/17/16 07/18/17 Unknown Rx AtorvaSTATin [Lipitor] 40 mg PO QHS 06/02/17 07/18/17 Unknown History Clopidogrel [Plavix] 75 mg PO QDAY 06/02/17 07/18/17 Unknown History HYDROcodone/APAP 5-325 [Acme 5 mg PO DAILY 06/02/17 07/18/17 Unknown History 5-325 mg TAB] glipiZIDE [Glipizide] 10 mg PO DAILY 06/02/17 07/18/17 Unknown History hydrALAZINE [Apresoline TAB] 25 mg PO Q8HR 06/02/17 07/18/17 Unknown History hydroCHLOROthiazide [HCTZ] 12.5 mg PO QDAY 06/02/17 07/18/17 Unknown History Aspirin [Aspir-Low] 81 mg PO DAILY 07/18/17 07/18/17 Unknown History Meclizine [Antivert] 25 mg PO TID PRN #10 tablet 09/05/18 Unknown Rx Ondansetron [Zofran ODT TAB] 4 mg PO Q8HR #10 tab.rapdis 09/05/18 Unknown Rx traMADoL [Ultram 50 MG tab] 50 mg PO Q6HR PRN #15 tablet 03/03/20 Unknown Rx lisinopriL [Zestril TAB] 1 tab PO BID #60 tablet 04/09/20 Unknown Rx Albuterol Sulfate [Proventil Hfa] 2 puff IH 4XD #1 inh 03/12/21 Unknown Rx Benzonatate [Tessalon Perles] 100 mg PO Q8HR #21 cap 03/12/21 Unknown Rx ED Physical Exam - General Limitations: No Limitations, Other (Pulse ox noted and normal) General appearance: alert, in no apparent distress - Head Head exam: Present: atraumatic, normocephalic - Eye Eye exam: Present: normal appearance, EOMI. Absent: scleral icterus - ENT ENT exam: Present: normal orophraynx, normal external ear exam - Neck Neck exam: Present: normal inspection. Absent: meningismus - Respiratory Respiratory exam: Present: normal lung sounds bilaterally. Absent: respiratory distress - Cardiovascular Cardiovascular Exam: Present: normal rhythm, tachycardia - GI/Abdominal GI/Abdominal exam: Present: soft. Absent: distended, tenderness - Extremities Exam Extremities exam: Present: normal capillary refill. Absent: calf tenderness - Back Exam Back exam: Absent: CVA tenderness (R), CVA tenderness (L) - Neurological Exam Neurological exam: Present: alert, oriented X3, CN II-XII intact, normal gait - Psychiatric Psychiatric exam: Present: normal affect, normal mood - Skin Skin exam: Present: warm, dry ED Course Vital Signs 03/11/21 17:01 Temperature 98.2 F Pulse Rate 101 H Respiratory 20 Rate Blood Pressure 139/71 O2 Sat by Pulse 95 Oximetry - Reevaluation(s) Reevaluation #1: 03/11/21 20:18 Labs, medications, and x-rays were ordered. Old records noted. Reevaluation #2: 03/12/21 00:11 Patient was not hypoxic. She was discharged. ED Medical Decision Making - Radiology Data Radiology results: report reviewed - Medical Decision Making Patient presents with a constellation of viral upper respiratory symptoms. I do believe this represents coronavirus. She has a patchy infiltrative process on x-ray. She is not hypoxic to require admission. She does not appear to be septic. Patient does not have a lobar pneumonia. She was treated empirically for her viral illness. She has been referred for outpatient evaluation. She can consider outpatient testing or simply isolate at home for 5 days as she likely has coronavirus. Critical Care Time: No Critical care attestation.: If time is entered above; I have spent that time in minutes in the direct care of this critically ill patient, excluding procedure time. ED Disposition Clinical Impression: Viral URI, Suspected COVID-19 virus infection Disposition: HOME / SELF CARE / HOMELESS Is pt being admited?: No Condition: Stable Instructions: Viral Respiratory Infection, [id number], Cough, Adult, [id number] Additional Instructions: Use Tylenol for fever. Push fluids. Return for problems. Use the inhaler. Follow-up with your family doctor or the referral physician for recheck. Isolate at home. Consider outpatient COVID testing. Prescriptions: Albuterol Sulfate [Proventil Hfa] 2 puff IH 4XD #1 inh Benzonatate [Tessalon Perles] 100 mg PO Q8HR #21 cap Referrals: PRIMARY CARE, [Primary Care Provider] - 3-5 Days KRISTOPHER KNOX MD [Staff Physician] - 3-5 Days
[2021-03-11] MEDS ORDERED: ALBUTEROL 8.5 GM MDI INHALATION IH ONE ×2 (21:00→23:15)
--- NOTE | 2021-03-11 21:10 | XRay Report ---
CHEST 2 VIEWS INDICATION / CLINICAL INFORMATION: Cough. COMPARISON: 08/29/20. FINDINGS: SUPPORT DEVICES: None. HEART / MEDIASTINUM: The heart size and pulmonary vasculature are normal. LUNGS / PLEURA: There are mild patchy peripheral parenchymal opacities in both mid to lower lung zone s, right greater than left. Disease is new since the prior study. No significant pleural effusion. No pneumothorax. ADDITIONAL FINDINGS: No significant additional findings. IMPRESSION: Mild patchy parenchymal opacities in both lungs are nonspecific, but likely inflammatory. Atypical causes of pneumonia, especially viral pneumonia, should be considered. Signer Name: Isaiah Cazares MD Signed: 03/11/2021 9:05 PM Workstation Name: [id number]
== END 2021-03-12 00:30 | disposition home or self-care (01) ==
LOC: ED 16:54
DX: J06.9 Acute upper respiratory infection, unspecified (principal); B97.89 Other viral agents as the cause of diseases classified elsewhere; Z20.822 Contact with and (suspected) exposure to COVID-19; I10 Essential (primary) hypertension; E11.9 Type 2 diabetes mellitus without complications; K21.9 Gastro-esophageal reflux disease without esophagitis; J44.9 Chronic obstructive pulmonary disease, unspecified; E78.00 Pure hypercholesterolemia, unspecified; Z88.6 Allergy status to analgesic agent; Z88.8 Allergy status to other drugs, medicaments and biological substances; Z79.899 Other long term (current) drug therapy; Z88.0 Allergy status to penicillin; Z91.013 Allergy to seafood; Z79.82 Long term (current) use of aspirin
CPT/HCPCS: 71046; 94640; 99283; J3490; Q0162